=== PATIENT | male | born 1990 ===

== ENCOUNTER 2017-05-03 09:17 | Emergency (ER) | payer BC ==
[2017-05-03 09:20] VITALS: O2SAT 98
[2017-05-03 09:22] VITALS: BMI 29.0
[2017-05-03] MEDS ORDERED: Sodium Chloride 0.9% 1,000 ML IV STA (09:43)
[2017-05-03 10:13] LABS: BASO % 0.3 % (0.0-2.0); EOS # 0.1 K/uL (0.0-0.7); EOS % 1.4 % (0.0-4.0); HEMATOCRIT 43.8 % (35.0-51.0); LYMPH # 1.3 K/uL (1.0-4.3); LYMPH % 19.6 % (20.0-40.0); MEAN CELL VOLUME 86.7 fl (80.0-94.0); MEAN CORPUSCULAR HEMOGLOBIN 29.3 pg (27.0-31.0); MEAN CORPUSCULAR HGB CONC 33.8 g/dL (33.0-37.0); MEAN PLATELET VOLUME 8.1 fl (7.2-11.7); MONO # 0.5 K/uL (0.0-0.8); MONO % 7.8 % (0.0-10.0); NEUT # 4.8 K/uL (1.8-7.0); NEUT % 70.9 % (50.0-75.0); WHITE BLOOD COUNT 6.8 K/uL (4.8-10.8)
[2017-05-03 10:28] LABS: RBC URINE 2 /hpf (0-3); URINE BILIRUBIN NEGATIVE (NEGATIVE); URINE BLOOD NEGATIVE (NEGATIVE); URINE COLOR STRAW (YELLOW); URINE GLUCOSE (UA) NEG (Normal); URINE KETONE NEGATIVE (NEGATIVE); URINE LEUKOCYTE ESTERASE NEG Leu/uL (Negative); URINE PROTEIN NEGATIVE (NEGATIVE); URINE UROBILINOGEN 0.2-1.0 mg/dL (0.2-1.0); WBC URINE < 1 /hpf (0-5)
[2017-05-03 10:29] LABS: ALB/GLOB RATIO 1.4 (1.0-2.1); ALCOHOL SERUM < 10 mg/dl (0-10); ALKALINE PHOSPHATASE 82 U/L (38-126); ALT/SGPT 43 U/L (21-72); AST/SGOT 91 U/L (17-59); BILIRUBIN,TOTAL 0.7 mg/dl (0.2-1.3); BLOOD UREA NITROGEN 8 mg/dl (9-20); CALCIUM 9.7 mg/dL (8.4-10.2); CARBON DIOXIDE 26 mmol/L (22-30); CHLORIDE 105 mmol/L (98-107); GFR AFRICAN-AMERICAN > 60; GLUCOSE,RANDOM 103 mg/dL (75-110); POTASSIUM 3.9 MMOL/L (3.6-5.0); SODIUM 142 mmol/l (132-148); TOTAL PROTEIN 7.5 G/DL (6.3-8.2)
--- NOTE | 2017-05-03 12:30 | ED PDOC ---
Lower Extremity Pain/Injury Time Seen by Provider: 05/03/17 09:31 Chief Complaint (Nursing): Lower Extremity Problem/Injury History Per: Patient (states that he is concerned about his legs being restless. Symptoms have been present for 2-3 weeks. They seem to improve when he stands and walk but worsens when he is lying and trying to sleep. Patient has psych illness. He takes benzodiazepines, cogentin and other drugs.) History/Exam Limitations: no limitations Past Medical History Reviewed: Historical Data, Nursing Documentation, Vital Signs Vital Signs: Last Vital Signs Temp 99.1 F 05/03/17 09:19 Pulse 110 H 05/03/17 09:19 Resp 20 05/03/17 09:19 BP 186/95 H 05/03/17 09:19 Pulse Ox 98 05/03/17 09:26 - Medical History PMH: Anxiety (and OCD), Depression - Surgical History Surgical History: No Surg Hx - Family History Family History: States: Unknown Family Hx - Immunization History Hx Tetanus Toxoid Vaccination: Yes (2012) - Allergies Allergies/Adverse Reactions: Allergies Allergy/AdvReac Type Severity Reaction Status Date / Time No Known Allergies Allergy Verified 05/03/17 09:25 Review of Systems ROS Statement: Except As Marked, All Systems Reviewed And Found Negative Constitutional: Negative for: Fever, Chills Musculoskeletal: Positive for: Leg Pain (restless; cramps sometimes) Psych: Positive for: Anxiety, Depression. Negative for: Suicidal ideation Physical Exam - Reviewed Nursing Documentation Reviewed: Yes Vital Signs Reviewed: Yes - Physical Exam Appears: Positive for: Well, Non-toxic, No Acute Distress Head Exam: Positive for: ATRAUMATIC, NORMAL INSPECTION, NORMOCEPHALIC Skin: Positive for: Normal Color, Warm, DRY Eye Exam: Positive for: Normal appearance ENT: Positive for: Normal ENT Inspection Neck: Positive for: Normal, Painless ROM Cardiovascular/Chest: Positive for: Regular Rate, Rhythm Respiratory: Positive for: CNT, Normal Breath Sounds Gastrointestinal/Abdominal: Positive for: Normal Exam, Bowel Sounds, Soft Back: Positive for: Normal Inspection Extremity: Positive for: Normal ROM Neurologic/Psych: Positive for: Alert, Oriented - Laboratory Results Result Diagrams: 05/03/17 10:00 05/03/17 10:00 - ECG O2 Sat by Pulse Oximetry: 98 Disposition - Clinical Impression Clinical Impression: Leg pain - Patient ED Disposition Is Patient to be Admitted: No Doctor Will See Patient In The: Office Counseled Patient/Family Regarding: Diagnosis, Need For Followup - Disposition Referrals: [facility] [Outside] [facility] [Outside] [facility] [Outside] Disposition: Routine/Home Disposition Time: 12:31 Condition: STABLE Instructions: Leg Pain (ED), Anxiety (ED), Depression (ED) Forms: [employer] ([place]riac) - POA Present On Arrival: None
[2017-05-03 13:05] VITALS: BP 144/78; PULSE 90; RESP 16; TEMP 98
== END 2017-05-03 13:38 | disposition home or self-care (01) ==
LOC: H.ER 09:17
DX: M79.604 Pain in right leg (principal); M79.605 Pain in left leg; F41.9 Anxiety disorder, unspecified
CPT/HCPCS: 80053; 81003; 82550; 85025; 96374; 99283; G0480; J1885; J7040

== ENCOUNTER 2017-12-29 20:05 | Emergency (ER) | payer MEDICAID ==
[2017-12-29 20:05] VITALS: BMI 29.0
[2017-12-29 20:21] VITALS: BP 154/82; PULSE 75; RESP 18; TEMP 98.4; O2SAT 98
--- NOTE | 2017-12-29 20:58 | ED PDOC ---
HPI: Psych/Substance Abuse Time Seen by Provider: 12/29/17 20:22 Chief Complaint (Nursing): Psychiatric Evaluation Chief Complaint (Provider): Psychiatric Evaluation History Per: Patient History/Exam Limitations: no limitations Onset/Duration Of Symptoms: Days (x5) Current Symptoms Are (Timing): Still Present Associated Symptoms: Suicidal Thoughts. denies: Suicidal Plan Additional Complaint(s): Radha Hill is a 27 year old male with a past medical history of OCD, ADHD, and bipolar disorder, who is presenting to the ED with complaints of suicidal ideation and racing thoughts, onset 5 days ago. Patient states that he has had thoughts of self-injury but denies any plan. He reports that he takes [place], Zoloft, and hydroxyzine and is in compliance with his medications. Patient states that he saw his psychiatrist Dr. Antunez recently, who put him on hydroxyzine with minor relief of symptoms. Patient offers no other medical complaints at this time and denies homicidal ideation or any hallucinations. PMD: [place] Past Medical History Reviewed: Historical Data, Nursing Documentation, Vital Signs Vital Signs: Last Vital Signs Temp 98.4 F 12/29/17 20:18 Pulse 75 12/29/17 20:18 Resp 18 12/29/17 20:18 BP 154/82 H 12/29/17 20:18 Pulse Ox 98 12/29/17 20:18 - Medical History PMH: Anxiety (and OCD), Bipolar Disorder, Depression Other PMH: OCD, ADHD - Surgical History Surgical History: No Surg Hx - Family History Family History: States: Unknown Family Hx - Social History Current smoker - smoking cessation education provided: No Alcohol: None Drugs: Denies - Immunization History Hx Tetanus Toxoid Vaccination: Yes (2012) - Home Medications Home Medications: Ambulatory Orders Medication Instructions Recorded Hydroxyzine Pamoate [Vistaril] 25 mg PO BID 12/29/17 [place] Carbonate [[place] 600 mg PO BID 12/29/17 Carbonate] Minocycline HCl [Minocin] 100 mg PO BID 12/29/17 Sertraline [Zoloft] 200 mg PO DAILY 12/29/17 - Allergies Allergies/Adverse Reactions: Allergies Allergy/AdvReac Type Severity Reaction Status Date / Time No Known Allergies Allergy Verified 12/29/17 21:04 Review of Systems ROS Statement: Except As Marked, All Systems Reviewed And Found Negative Psych: Positive for: Suicidal ideation (racing thoughts). Negative for: Other ( homicidal ideation, hallucinations) Physical Exam - Reviewed Nursing Documentation Reviewed: Yes Vital Signs Reviewed: Yes - Physical Exam Appears: Positive for: Well, Non-toxic, No Acute Distress Head Exam: Positive for: ATRAUMATIC, NORMAL INSPECTION, NORMOCEPHALIC Skin: Positive for: Normal Color, Warm, DRY Eye Exam: Positive for: EOMI, Normal appearance, PERRL ENT: Positive for: Normal ENT Inspection Neck: Positive for: Normal, Painless ROM, Supple Cardiovascular/Chest: Positive for: Regular Rate, Rhythm. Negative for: Murmur Respiratory: Positive for: Normal Breath Sounds. Negative for: Respiratory Distress Gastrointestinal/Abdominal: Positive for: Normal Exam, Soft. Negative for: Tenderness Back: Positive for: Normal Inspection Extremity: Positive for: Normal ROM. Negative for: Deformity, Swelling Neurologic/Psych: Positive for: Alert, Oriented. Negative for: Motor/Sensory Deficits - ECG O2 Sat by Pulse Oximetry: 98 (RA) Pulse Ox Interpretation: Normal Medical Decision Making Medical Decision Making: Time: 20:23 Impression: 27 year old male with suicidal thoughts in setting of known bipolar disorder Plan: --Drug Screen --Crisis Evaluation --1:1 Observation Patient has a crisis evaluation and was cleared and stable for discharge. Patient will follow up with his therapist and Dr. Antunez. Scribe Attestation: Documented by, Michelle Stuart acting as a scribe for Jerome Mercer MD. Provider Scribe Attestation: All medical record entries made by the Scribe were at my direction and personally dictated by me. I have reviewed the chart and agree that the record accurately reflects my personal performance of the history, physical exam, medical decision making, and the department course for this patient. I have also personally directed, reviewed, and agree with the discharge instructions and disposition. Disposition - Clinical Impression Clinical Impression: Anxiety - Patient ED Disposition Is Patient to be Admitted: No - Disposition Disposition: Routine/Home Disposition Time: 22:42 Condition: STABLE Instructions: Anxiety, Adult (DC) Forms: [employer] (Trinidadian)
[2017-12-29 21:07] LABS: BENZODIAZEPINES, UR NEGATIVE (NEGATIVE)
[2017-12-29 21:08] LABS: BARBITURATES, UR NEGATIVE (NEGATIVE); OPIATES, UR NEGATIVE (NEGATIVE); PHENCYCLIDINE, UR NEGATIVE (NEGATIVE)
== END 2017-12-29 22:59 | disposition home or self-care (01) ==
LOC: H.ER 20:05
DX: F41.9 Anxiety disorder, unspecified (principal); F31.9 Bipolar disorder, unspecified; F42.9 Obsessive-compulsive disorder, unspecified; F90.9 Attention-deficit hyperactivity disorder, unspecified type

== ENCOUNTER 2018-04-29 07:07 | Emergency (ER) | payer MEDICAID ==
[2018-04-29 07:15] VITALS: BMI 21.7
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
[2018-04-29 08:02] LABS: BASO # 0.1 K/uL (0.0-0.2); BASO % 0.5 % (0.0-2.0); EOS # 0.1 K/uL (0.0-0.7); EOS % 1.2 % (0.0-4.0); HEMOGLOBIN 16.5 g/dL (12.0-18.0); LYMPH # 2.7 K/uL (1.0-4.3); LYMPH % 24.9 % (20.0-40.0); MEAN CELL VOLUME 86.3 fl (80.0-94.0); MEAN CORPUSCULAR HEMOGLOBIN 29.4 pg (27.0-31.0); MEAN PLATELET VOLUME 8.5 fl (7.2-11.7); MONO # 0.9 K/uL (0.0-0.8); MONO % 8.3 % (0.0-10.0); NEUT % 65.1 % (50.0-75.0); NRBC % 0.1 % (0.0-0.0); RBC 5.61 Mil/uL (4.40-5.90); RED CELL DISTRIBUTION WIDTH 12.8 % (11.5-14.5); WHITE BLOOD COUNT 10.8 K/uL (4.8-10.8)
[2018-04-29 08:16] LABS: ALB/GLOB RATIO 1.4 (1.0-2.1); ALBUMIN 4.7 g/dL (3.5-5.0); ALT/SGPT 29 U/L (21-72); AST/SGOT 59 U/L (17-59); BLOOD UREA NITROGEN 16 mg/dl (9-20); CALCIUM 10.2 mg/dL (8.4-10.2); GFR NON-AFRICAN AMERICAN > 60
[2018-04-29] MEDS: Potassium Chloride 20 mEq ER Tab PO ONE (09:00)
--- NOTE | 2018-04-29 09:22 | CARD ---
APPROVED REPORT Date of service: 04/29/2018 EKG Measurement Heart [id number] <Conclusion> Normal sinus rhythm prolonged QT abnormal ECG
[2018-04-29 10:59] LABS: BENZODIAZEPINES, UR NEGATIVE (NEGATIVE)
[2018-04-29 11:06] LABS: BARBITURATES, UR NEGATIVE (NEGATIVE); OPIATES, UR NEGATIVE (NEGATIVE); PHENCYCLIDINE, UR NEGATIVE (NEGATIVE)
--- NOTE | 2018-04-29 11:17 | RAD ---
Date of service: 04/29/2018 HISTORY: cough COMPARISON: No prior. FINDINGS: LUNGS: No active pulmonary disease. PLEURA: No significant pleural effusion identified, no pneumothorax apparent. CARDIOVASCULAR: Normal. OSSEOUS STRUCTURES: No significant abnormalities. VISUALIZED UPPER ABDOMEN: Normal. OTHER FINDINGS: None. IMPRESSION: No acute cardiopulmonary disease appreciated.
--- NOTE | 2018-04-29 19:29 | ED PDOC ---
- Laboratory Results Result Diagrams: 04/29/18 07:55 04/29/18 07:55 - ECG O2 Sat by Pulse Oximetry: 99 (RA) Pulse Ox Interpretation: Normal Medical Decision Making Medical Decision Making: Time: 1899 --Patient signed out to this provider by Dr. Mcfarland, pending [facility] screener evaluation. Time: 20:52 --Patient accepted by [facility], pending bed and voluntary admission. Time: 7:00 --Patient will be signed out to Dr. Tolliver pending [facility] bed availbility. Scribe Attestation: Documented by Tamika Kuhn, acting as a scribe for Jerome Mercer MD Provider Scribe Attestation: All medical record entries made by the Scribe were at my direction and personally dictated by me. I have reviewed the chart and agree that the record accurately reflects my personal performance of the history, physical exam, medical decision making, and the department course for this patient. I have also personally directed, reviewed, and agree with the discharge instructions and disposition. Disposition - Clinical Impression Clinical Impression: Bipolar 1 disorder - POA Present On Arrival: None - Disposition Disposition: Transfer of Care Disposition Time: 07:00 Condition: FAIR Forms: [employer] (Albanian) Patient Signed Over To: Kim Tolliver
--- NOTE | 2018-04-29 19:42 | ED PDOC ---
- Laboratory Results Result Diagrams: 04/29/18 07:55 04/29/18 07:55 - ECG O2 Sat by Pulse Oximetry: 100 (RA) Pulse Ox Interpretation: Normal Medical Decision Making Medical Decision Making: Time: 1700 --Signed out by Dr. Whitmore, waiting [facility] evaluation. No changes in status at this point, nothing pending medically Time: 1900 --Patient signed out to Dr. Mercer by this provider, pending [facility] evaluation. Scribe Attestation: Documented by Tamika Kuhn, acting as a scribe for Beckie Mcfarland MD Provider Scribe Attestation: All medical record entries made by the Scribe were at my direction and personally dictated by me. I have reviewed the chart and agree that the record accurately reflects my personal performance of the history, physical exam, medical decision making, and the department course for this patient. I have also personally directed, reviewed, and agree with the discharge instructions and disposition. Disposition - Clinical Impression Clinical Impression: Bipolar 1 disorder - POA Present On Arrival: None - Disposition Disposition: Transfer of Care Disposition Time: 19:00 Condition: FAIR Forms: [employer] ([place])
[2018-04-30] MEDS ORDERED: Potassium Chloride 20 mEq ER Tab PO ONE (01:44)
[2018-04-30] MEDS: Potassium Chloride 20 mEq ER Tab PO ONE (01:47)
--- NOTE | 2018-04-30 07:11 | ED PDOC ---
- Laboratory Results Result Diagrams: 04/29/18 07:55 04/30/18 07:02 - ECG O2 Sat by Pulse Oximetry: 99 (RA) Medical Decision Making Medical Decision Making: received patient from Dr. Mercer. Patient is pending [facility] evaluation. Also pending a repeat potassium level after replacement. - accepted by DR. Pandey at [facility]. Disposition Doctor Will See Patient In The: Hospital - Clinical Impression Clinical Impression: Bipolar 1 disorder - POA Present On Arrival: None - Disposition Disposition: Other Institution Disposition Time: 11:15 Condition: STABLE Instructions: Bipolar Disorder Forms: [employer] [facility] (Ukrainian)
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
[2018-04-30 13:35] VITALS: BP 123/72; PULSE 114; RESP 14; TEMP 98.1; O2SAT 97
== END 2018-04-30 13:34 | disposition short-term general hospital (02) ==
LOC: H.ER 07:07
DX: F31.9 Bipolar disorder, unspecified (principal); F41.9 Anxiety disorder, unspecified; F42.9 Obsessive-compulsive disorder, unspecified; F90.9 Attention-deficit hyperactivity disorder, unspecified type
CPT/HCPCS: 71045; 80053; 80320; 80324; 80345; 80346; 80349; 80353; 80358; 80361; 83992; 84132; 85025; 93005; 96372; 99285; J1630; J2060

== ENCOUNTER 2018-05-09 09:27 | Inpatient (IN) | payer MEDICAID ==
[2018-05-09 09:28] VITALS: BMI 21.7
[2018-05-09 09:40] VITALS: O2SAT 98
--- NOTE | 2018-05-09 10:23 | ED PDOC ---
HPI: Psych/Substance Abuse Time Seen by Provider: 05/09/18 09:43 Chief Complaint (Nursing): Anxiety Chief Complaint (Provider): Anxiety History Per: Patient, EMS History/Exam Limitations: no limitations Additional Complaint(s): 28 years old male with history of bipolar manic behavior brought over from [facility] for manic behavior. Patient has not been compliant with medication and denies SI/HI. PMD: non provided Past Medical History Reviewed: Historical Data, Nursing Documentation, Vital Signs Vital Signs: Last Vital Signs Temp 99.5 F 05/09/18 09:40 Pulse 90 05/09/18 09:40 Resp 20 05/09/18 09:40 BP 169/91 H 05/09/18 09:40 Pulse Ox 98 05/09/18 09:42 - Medical History PMH: Anxiety (and OCD), Bipolar Disorder, Depression Denies: Diabetes, Hepatitis, HIV, HTN, Seizures, Sexually Transmitted Disease - Surgical History Surgical History: No Surg Hx - Family History Family History: States: Unknown Family Hx - Immunization History Hx Tetanus Toxoid Vaccination: Yes (2012) Hx Influenza Vaccination: No Hx Pneumococcal Vaccination: No - Home Medications Home Medications: Ambulatory Orders Medication Instructions Recorded ARIPiprazole [Abilify] 15 mg PO DAILY 05/09/18 [place] Carbonate [[place] 300 mg PO DAILY 05/09/18 Carbonate 300MG] [place] Carbonate [[place] 600 mg PO HS 05/09/18 Carbonate 300MG] Propranolol [Inderal] 10 mg PO TID 05/09/18 hydrOXYzine Pamoate [Vistaril] 50 mg PO TID PRN 05/09/18 hydrOXYzine Pamoate [Vistaril] 100 mg PO HS 05/09/18 - Allergies Allergies/Adverse Reactions: Allergies Allergy/AdvReac Type Severity Reaction Status Date / Time No Known Allergies Allergy Verified 12/29/17 21:04 Review of Systems ROS Statement: Except As Marked, All Systems Reviewed And Found Negative Neurological: Positive for: Other (Manic behavior) Physical Exam - Reviewed Nursing Documentation Reviewed: Yes Vital Signs Reviewed: Yes - Physical Exam Appears: Positive for: Non-toxic, No Acute Distress Head Exam: Positive for: ATRAUMATIC, NORMOCEPHALIC Skin: Positive for: Normal Color, Warm, Dry Eye Exam: Positive for: Normal appearance, EOMI, PERRL Neck: Positive for: Normal, Painless ROM, Supple Cardiovascular/Chest: Positive for: Regular Rate, Rhythm. Negative for: Murmur Respiratory: Positive for: Normal Breath Sounds. Negative for: Respiratory Distress Gastrointestinal/Abdominal: Positive for: Normal Exam, Soft. Negative for: Tenderness Extremity: Positive for: Normal ROM. Negative for: Pedal Edema, Swelling Neurologic/Psych: Positive for: Alert, Oriented (x3) - Laboratory Results Result Diagrams: 05/09/18 11:00 05/09/18 11:00 - ECG O2 Sat by Pulse Oximetry: 98 (RA) Pulse Ox Interpretation: Normal Medical Decision Making Medical Decision Making: Time: 1008 Initial Plan: --Alcohol serum --CMP --Drug Screen --Urine Dipstick --CBC --1:1 Observation Medically stable for psychiatric admission ----- Scribe Attestation: Documented by Laura Hernandez, acting as a scribe for David Whitmore MD. Provider Scribe Attestation: All medical record entries made by the Scribe were at my direction and personally dictated by me. I have reviewed the chart and agree that the record accurately reflects my personal performance of the history, physical exam, medical decision making, and the department course for this patient. I have also personally directed, reviewed, and agree with the discharge instructions and disposition. Disposition - Clinical Impression Clinical Impression: Bipolar 1 disorder - Patient ED Disposition Is Patient to be Admitted: Yes - Disposition Disposition Time: 10:53 Condition: FAIR - Pt Status Changed To: Hospital Disposition Of: Inpatient - Admit Certification Admit to Inpatient:: After my assessment, the patient will require hospitalization for at least two midnights. This is because of the severity of symptoms shown, intensity of services needed, and/or the medical risk in this patient being treated as an outpatient. - POA Present On Arrival: None
[2018-05-09 11:12] LABS: BASO # 0.1 K/uL (0.0-0.2); BASO % 1.3 % (0.0-2.0); EOS % 0.4 % (0.0-4.0); HEMOGLOBIN 15.6 g/dL (12.0-18.0); MEAN CELL VOLUME 84.6 fl (80.0-94.0); MEAN CORPUSCULAR HEMOGLOBIN 29.3 pg (27.0-31.0); MEAN CORPUSCULAR HGB CONC 34.7 g/dL (33.0-37.0); MEAN PLATELET VOLUME 7.9 fl (7.2-11.7); MONO # 0.7 K/uL (0.0-0.8); MONO % 7.7 % (0.0-10.0); NEUT # 6.7 K/uL (1.8-7.0); NEUT % 69.6 % (50.0-75.0); RBC 5.3 Mil/uL (4.40-5.90); RED CELL DISTRIBUTION WIDTH 12.7 % (11.5-14.5); WHITE BLOOD COUNT 9.6 K/uL (4.8-10.8)
[2018-05-09 11:29] LABS: ALB/GLOB RATIO 1.3 (1.0-2.1); ALBUMIN 4.5 g/dL (3.5-5.0); ALT/SGPT 34 U/L (21-72); AST/SGOT 44 U/L (17-59); BLOOD UREA NITROGEN 13 mg/dl (9-20); CALCIUM 9.8 mg/dL (8.4-10.2); GFR NON-AFRICAN AMERICAN > 60
[2018-05-09 11:40] LABS: BARBITURATES, UR NEGATIVE (NEGATIVE); BENZODIAZEPINES, UR NEGATIVE (NEGATIVE); OPIATES, UR NEGATIVE (NEGATIVE); PHENCYCLIDINE, UR NEGATIVE (NEGATIVE)
--- NOTE | 2018-05-09 12:22 | RAD ---
Date of service: 05/09/2018 HISTORY: cough COMPARISON: 04/29/2018. FINDINGS: LUNGS: No active pulmonary disease. PLEURA: No significant pleural effusion identified, no pneumothorax apparent. CARDIOVASCULAR: Normal. OSSEOUS STRUCTURES: No significant abnormalities. VISUALIZED UPPER ABDOMEN: Normal. OTHER FINDINGS: None. IMPRESSION: No active disease. No significant interval change compared to the prior examination(s).
[2018-05-09] MEDS ORDERED: DiphenhydrAMINE 50 mg/ml Inj IM PRN (13:10)
[2018-05-09] MEDS ORDERED: Alum-Mag Hydrox-Simethicone Susp (30 mL) PO PRN (13:10)
[2018-05-09] MEDS ORDERED: Magnesium Hydroxide Susp 30 ml UD PO PRN (13:10)
--- NOTE | 2018-05-09 14:24 | PCM.BM ---
<Mauricio Alexander Aaron - Last Filed: 05/09/18 14:22> Treatment Plan Problems - Problems identified on initial assessmt Hopelessness/Helplessness Date Initiated: 05/09/18 Time Initiated: 14:00 Assessment reference: NA Altered Sleep Paterns Date Initiated: 05/09/18 Time Initiated: 14:00 Assessment reference: NA Medications Nonadherance Date Initiated: 05/09/18 Time Initiated: 14:00 Assessment reference: NA Treatment assets and liabiliti Patient Assests: adapts well, cooperative, insightful, self-reliant, ADL independent Patient Liabilities: poor support system, substance abuse - Milieu Protocol Maintain good personal hygiene: every shift Encourage regular showers, every shift Remind patient to perform daily oral care, every shift Assist patient to perform ADL's Maintain personal safety: every shift Educate patient to report safety concerns to staff, every shift Monitor environment for contraband/sharps Medication safety: Monitor for expected outcome, potential side effects: every shift, Assess barriers to learning: every shift, Assess readiness for medication education: every shift <Kiley Alford - Last Filed: 05/15/18 14:05> Treatment assets and liabiliti Patient Assests: adapts well, cooperative, insightful, motivated, self-reliant, ADL independent, physically healthy, good support system, negotiates basic needs, cognitively intact Patient Liabilities: poor support system, substance abuse Family Contact Family involvement: Family/SO is involved Family contact: Patient agrees to contact, Family has been contacted by patient, Telephone contact initiated by staff Family contact comment: NOTE from 05/13. [employer] Supervisor placed call to patients mother this morning to discuss progress on 3NP since admission an current presentation. [employer] Supervisor provided clinical updates regarding pts progress and assured mother that grant writer would continue to provide updates through-out patients stabilization. NOTE from 05/14. [employer] Supervisor placed call to patients mother this morning to discuss progress on 3NP since admission an current presentation. [employer] Supervisor received call from patients mother requesting clinical updates. [employer] Supervisor provided clinical updates regarding pts progress and notified patients mother that patient was screened by [facility] and not accepted. Patients mother made aware that patient signed a 48 hour notice earlier today but was rescinded and is agreeable to continue stabilization on 3NP through medication management and group/supportive therapy. Patients mother expressed concerns regarding pts adherence with medication prior to admission. [employer] Supervisor assured pts mother that importance of adherence with medications/aftercare and abstinence from substances is being emphasized daily. [employer] Supervisor to continue to provide updates through-out patients stabilization. [employer] Supervisor received call from patients mother at 4:40pm requesting clinical updates. [employer] Supervisor notified patients mother that secondary to threatening behaviors on 3NP, refusal of recommended tx and demands to be discharged, patient is currently awaiting [facility] screening. pts mother expressed understanding but disappointment in possibility of patient being committed to involuntary tx again. Pts mother inquired whether she is able to visit tonight. [employer] Supervisor recommended that patients mother to contact nurses station closer to visitation hours and inquire whether visitors are appropriate given pts presentation/behavior at the time. Pts mother expressed understanding. - Outside Agency Agency 1 Care involvment: Information-sharing, Other Agency contact name: [facility] Agency contact number: [phone] - Goals for Treatment Patient goals for treatment: Patient to continue stabilization on 3NP through medication management and group/supportive therapy to address sxs of [place] (restlessness, racing/illogical thoughts, sleep disturbances). Patient to be encouraged to attend groups regularly to promote self-awareness, sobriety,reality testing and improve insight, compliance, coping skills and self-esteem. Patient to be provided with referral for appropriate level of aftercare to reduce risk of future hospitalizations and ensure safety in the community. Discharge/Continuing Care - Education Needs Education Needs: Family Medication, Family Diagnosis/Disease Process, Family Coping Skills, Family Anger Management skills, Family Placement options, Family Community resources, Family Aftercare Safety Plan, Patient Medication, Patient Diagnosis/Disease Process, Patient Coping Skills, Patient Anger Management skills, Patient Placement options, Patient Community resources, Patient Aftercare Safety Plan - Discharge Discharge Criteria: Tolerates medication w/o severe side effects, Free of Suicidal thoughts, Free of paranoid thoughts, Free of agitation, Normal sleep pattern, Ability to care for self, Reduction of target symptoms Discharge to:: Home, With Family, Other ([facility]) - Treatment Team Participation Patient/Family/SO Statement: 05/15/18 14:19 LATE NOTE: TX TEAM NOTE FOR 05/12 Pt. AOX4 with constricted affect and fair eye contact. Pt. remains disorganized and tangential. Thought process is often illogical. Speech: pressured. Pt somewhat disheveled with fair ADLs. Insight/Coping skills/judgment impaired. Pt. denies SI/HI and is able to contract for safety on 3NP. Pt. continues to deny AH/VH but does appear internally preoccupied. Pt. reports ongoing sleep disturbances and restlessness. Pt. signed a 48 hour notice on 05/12 but rescinded on 05/13. Shortly after, pt. made a verbal 48 hour notice, expressing paranoia towards staff and demanding to be discharged. Pt. became irritable and threatening towards staff, requiring redirection and limit setting to remain in behavioral control. Pt. currently refusing medications. Pt. awaiting [facility] screening. Pt. was later screened and not accepted. Pt. submitted a 48 hour notice soon after. Patient rescinded and is agreeable to continuing stabilization on 3NP through medication management and group supportive therapy. Pt. continues to present with sxs of madison (restlessness, anxiety, racing thoughts, pressured speech) but to a lesser degree than upon admission. Pt. cooperative and in good behavioral control. Pt. visible on 3NP and observed socializing appropriately with peers. Discussed with Family/SO: Yes Was Patient/Family/SO present at Treatment Team Meeting: Yes <Guy Smith - Last Filed: 05/19/18 15:06> - Diagnosis (1) [place] Status: Acute Interventions: pharmacotherapy, psychotherapy 05/14/18 23:06
[2018-05-09] MEDS: Risperidone M tab 1 MG PO SCH (15:09)
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
--- NOTE | 2018-05-09 19:07 | CARD ---
APPROVED REPORT Date of service: 05/09/2018 <Conclusion> Normal sinus rhythm Normal ECG
[2018-05-09] MEDS ORDERED: Risperidone M TAB 2 MG PO SCH (22:00)
[2018-05-10 08:52] LABS: T4 10.2 ug/dl (5.5-11.0)
[2018-05-10] MEDS: Risperidone M tab 1 MG PO SCH (09:11)
--- NOTE | 2018-05-10 12:21 | PCM.PYCHPN ---
Psychiatric Progress Note - Psychiatric Progress Note Patient seen today, length of contact: Pt evaluated, case discussed w/ team, chart reviewed Patient Chief Complaint: [place]equ[place] Problems Identified/Issues Discussed: Patient continues to have rapid, pressured speech, w/ increased goal oriented activities, disorganized thought process and feelings of restlessness. He has not been agitated or aggressive and denies acute ideation to harm others. NO AH /VH/SI/HI. He discussed how he has conflicts with his father. We discussed continued titration of Risperdal and the importance of compliance with treatment and medications. No adverse effects reported. Medication Change: Yes (Increase Risperdal, starting tomorrow AM) Medical Record Reviewed: Yes Consults ordered or reviewed: Medicine consult Mental Status Examination - Cognitive Function Orientation: Person, Place, Situation, Time Memory: Intact Attention: Poor Concentration: Poor Association: Loose Fund of Knowledge: WNL Decription of patient's judgement and insights: Poor I/J - Mood Mood: Anxious - Affect Affect: Other (Labile) - Speech Speech: Pressured - Formal Thought Process Formal Thought Process: Paranoia, Loosening of associations, Flight of ideas, Circumstantial - Suicidal Ideation Suicidal Ideation: No - Homicidal Ideation Homicidal Ideation: No Goal/Treatment Plan - Goal/Treatment Plan Need for Continued Stay: Remain at risks for inpatient hospitalization, Discharge may exacerbated symptoms Progress Toward Problem(s) and Goals/Treatment Plan: Bipolar Disorder w/ Psychotic Features; Cannabis Use Disorder -Continue [place] -Increase Risperdal and Cogentin starting tomorrow AM -Individual and group therapy -Psychoeducation -Disposition planning Estimated Date of D/C: 05/16/18
--- NOTE | 2018-05-10 13:39 | CP.PCM.CON ---
History of Present Illness - History of Present Illness History of Present Illness: Reason for consult: per hospital protocol HPI: 28M PMH bipolar disorder and polysubstance abuse, noncomplaint with medications with prior psychiatric admissions since the age of 16 admitted for manic episode with psychotic features. Otherwise patient does not have any other complaints at this time. HD stable, NAD. ROS: per HPI all other systems reviewed and negative by me. Past Patient History - Past Social History Smoking Status: Never Smoked - CARDIAC Hx Cardiac Disorders: Yes Hx Hypertension: No - PULMONARY Hx Tuberculosis: No - NEUROLOGICAL HX Cerebrovascular Accident: No Hx Seizures: No - HEENT Hx Sinusitis: No - RENAL Hx Chronic Kidney Disease: No - ENDOCRINE/METABOLIC Hx Endocrine Disorders: No - HEMATOLOGICAL/ONCOLOGICAL Hx Cancer: No Hx Human Immunodeficiency Virus (HIV): No - INTEGUMENTARY Hx Dermatological Problems: No - MUSCULOSKELETAL/RHEUMATOLOGICAL Hx Musculoskeletal Disorders: No - GASTROINTESTINAL Hx Gastrointestinal Disorders: No - GENITOURINARY/GYNECOLOGICAL Hx Genitourinary Disorders: No Hx Sexually Transmitted Disorders: No - PSYCHIATRIC Hx Substance Use: Yes - SURGICAL HISTORY Hx Surgeries: No - ANESTHESIA Hx Anesthesia: No Meds Allergies/Adverse Reactions: Allergies Allergy/AdvReac Type Severity Reaction Status Date / Time No Known Allergies Allergy Verified 12/29/17 21:04 - Medications Medications: Current Medications Acetaminophen (Tylenol 325mg Tab) 650 mg PO Q4 PRN PRN Reason: Pain, moderate (4-7) Al Hydrox/Mg Hydrox/Simethicone (Maalox Plus 30 Ml) 30 ml PO Q4 PRN PRN Reason: Dyspepsia Benztropine Mesylate (Cogentin) 0.5 mg PO Q12 SHAUNNA Diphenhydramine HCl (Benadryl) 50 mg IM Q6 PRN PRN Reason: Extrapyramidal S/S Unable PO Diphenhydramine HCl (Benadryl) 50 mg PO Q6 PRN PRN Reason: Extrapyramidal Symptoms Last Admin: 05/09/18 22:20 Dose: 50 mg Haloperidol (Haldol) 5 mg PO Q6 PRN PRN Reason: Agitation Haloperidol Lactate (Haldol) 5 mg IM Q6 PRN PRN Reason: Agitation, Unable to Take PO Hydroxyzine Pamoate (Vistaril) 50 mg PO Q8 PRN PRN Reason: Anxiety Last Admin: 05/09/18 19:08 Dose: 50 mg [place] Carbonate ([place] Carbonate 300mg) 300 mg PO DAILY [facility] Last Admin: 05/10/18 09:07 Dose: 300 mg [place] Carbonate ([place] Carbonate 300mg) 600 mg PO HS [facility] Last Admin: 05/09/18 21:17 Dose: 600 mg Lorazepam (Ativan) 2 mg IM Q6 PRN PRN Reason: Anxiety/Agitation,Unable PO Magnesium Hydroxide (Milk Of Magnesia) 30 ml PO HS PRN PRN Reason: Constipation Nicotine (Nicoderm Cq) 1 patch TD DAILY [facility] Last Admin: 05/10/18 09:07 Dose: 1 patch Risperidone (Risperdal M-Tab) 2 mg PO Q12 [facility] Trazodone HCl (Desyrel) 100 mg PO HS PRN PRN Reason: Insomnia Last Admin: 05/09/18 21:17 Dose: 100 mg Physical Exam - Constitutional Appears: Non-toxic, No Acute Distress - Head Exam Head Exam: ATRAUMATIC, NORMOCEPHALIC - Eye Exam Eye Exam: EOMI, Normal appearance, PERRL - ENT Exam ENT Exam: Mucous Membranes Moist, Normal Exam - Neck Exam Neck exam: Positive for: Full Rom, Normal Inspection - Respiratory Exam Respiratory Exam: Clear to Auscultation Bilateral, NORMAL BREATHING PATTERN - Cardiovascular Exam Cardiovascular Exam: REGULAR RHYTHM, RRR, +S1, +S2 - GI/Abdominal Exam GI & Abdominal Exam: Normal Bowel Sounds, Soft. absent: Tenderness - Extremities Exam Extremities exam: Positive for: normal capillary refill, normal inspection, pedal pulses present - Back Exam Back exam: absent: CVA tenderness (L), CVA tenderness (R) - Neurological Exam Neurological exam: Alert, Reflexes Normal - Psychiatric Exam Psychiatric exam: Normal Affect, Normal Mood - Skin Skin Exam: Dry, Normal Color Results - Vital Signs Recent Vital Signs: Last Vital Signs Temp 96.8 F L 05/10/18 09:37 Pulse 108 H 05/10/18 09:37 Resp 20 05/10/18 09:37 BP 147/95 H 05/10/18 09:37 Pulse Ox 98 05/09/18 12:01 - Labs Result Diagrams: 05/09/18 11:00 05/09/18 11:00 Labs: Laboratory Results - last 24 hr 05/10/18 06:30 Triglycerides 95 D Cholesterol 158 LDL Cholesterol Direct 102 HDL Cholesterol 41 Thyroxine (T4) 10.2 TSH 3rd Generation 2.10 Assessment & Plan - Assessment and Plan (Free Text) Plan: 28M PMH bipolar disorder and polysubstance abuse, noncomplaint with medications with prior psychiatric admissions since the age of 16 admitted for manic episode with psychotic features. Otherwise patient does not have any other complaints at this time. HD stable, NAD. Bipolar disorder, manic with psychotic features management per psych team
[2018-05-10] MEDS: Risperidone M TAB 2 MG PO SCH (21:43)
[2018-05-11] MEDS: Risperidone M TAB 2 MG PO SCH (09:02)
--- NOTE | 2018-05-11 10:16 | PCM.PYCHPN ---
Psychiatric Progress Note - Psychiatric Progress Note Patient seen today, length of contact: Pt evaluated, case discussed w/ team, chart reviewed Patient Chief Complaint: Tequila Problems Identified/Issues Discussed: Patient continues to have rapid, pressured speech, w/ feelings of restlessness, but he is more organized on conversation. He has not been agitated or aggressive and denies acute ideation to harm others. NO AH/VH/SI/HI. He is not willing to continue taking Risperdal because "it makes me psychotic," but he was agreeable to taking Seroquel which he states was effective in the past. No adverse effects reported. Medication Change: Yes (Stop Risperdal, Start Seroquel) Medical Record Reviewed: Yes Consults ordered or reviewed: Medicine consult Mental Status Examination - Cognitive Function Orientation: Person, Place, Situation, Time Memory: Intact Attention: Poor Concentration: Poor Association: Loose Fund of Knowledge: WNL Decription of patient's judgement and insights: Poor I/J - Mood Mood: Anxious - Affect Affect: Other (Labile) - Speech Speech: Pressured - Formal Thought Process Formal Thought Process: Paranoia, Loosening of associations, Flight of ideas, Circumstantial Psychotic Thoughts and Behaviors: +Paranoia - Suicidal Ideation Suicidal Ideation: No - Homicidal Ideation Homicidal Ideation: No Goal/Treatment Plan - Goal/Treatment Plan Need for Continued Stay: Remain at risks for inpatient hospitalization, Discharge may exacerbated symptoms Progress Toward Problem(s) and Goals/Treatment Plan: Bipolar Disorder w/ Psychotic Features; Cannabis Use Disorder -Continue [place] -Stop Risperdal, Start Seroquel -Individual and group therapy -Psychoeducation -Disposition planning Estimated Date of D/C: 05/16/18
[2018-05-12] MEDS ORDERED: Risperidone M TAB 2 MG PO STA (12:24)
--- NOTE | 2018-05-12 15:19 | PCM.PYCHPN ---
Psychiatric Progress Note - Psychiatric Progress Note Patient seen today, length of contact: Pt evaluated, case discussed w/ team, chart reviewed Patient Chief Complaint: I feel that the medicine makes me psychotic Problems Identified/Issues Discussed: pt evaluated with treatment team, presenting with tangential thought process, pt believes that the medicine makes him psychotic rather than using cannabis discussed with pt the need to be started on medications that could be given as injection to help with compliance , pt denied previous side effects of risperidone agreed to be restarted on it with the goal to be shifted to risperidone consta pt continues to be pacing hyperactive with episodes of irritability, discussed starting pt on neurontin 200mg tid, and trazodone 200mg qhs for sleep encouraged pt to participate in groups, pt given one dose of risperidone 2mg with cogentin, no reported side effects pt denied command hallucinations, denied suicidal or homicidal ideation Medical Problems: pt has multiple inpatient hospitalizations since age 16 pt has hx of non compliance with medication or follow up Medication Change: Yes (start risperidone ) Medical Record Reviewed: Yes Mental Status Examination - Cognitive Function Orientation: Person, Place, Situation, Time Memory: Intact Attention: Poor Concentration: Poor Association: Loose Fund of Knowledge: WNL - Mood Mood: Anxious - Affect Affect: Other (Labile) - Speech Speech: Pressured - Formal Thought Process Formal Thought Process: Paranoia, Loosening of associations, Flight of ideas, Circumstantial - Suicidal Ideation Suicidal Ideation: No - Homicidal Ideation Homicidal Ideation: No Goal/Treatment Plan - Goal/Treatment Plan Need for Continued Stay: Remain at risks for inpatient hospitalization, Discharge may exacerbated symptoms Progress Toward Problem(s) and Goals/Treatment Plan: lithium 300mg daily and 600mg qhs/ follow up on lithium level start risperidone 2mg qhs with plan to change to risperidone consta to ensure compliance encourage compliance CBT motivational and group therapy Estimated Date of D/C: 05/16/18
[2018-05-12] MEDS: Risperidone M TAB 2 MG PO SCH (21:12)
[2018-05-13] MEDS ORDERED: Risperidone M TAB 2 MG PO ONE (11:30)
--- NOTE | 2018-05-13 11:37 | PCM.PYCHPN ---
Psychiatric Progress Note - Psychiatric Progress Note Patient seen today, length of contact: Pt evaluated, case discussed w/ team, chart reviewed Patient Chief Complaint: I need cannabis to sleep get me out of here Problems Identified/Issues Discussed: pt reported by staff to have poor night sleep, pacing and irritable all night , on evaluation, pt is manic irritable and loud,threatening, demanding to be discharged, presenting with disorganized though process , stating that the medications makes him manic and he needs weed to sleep, stating he did not notify staff about his court date yesterday because he would have to pay money for that, requesting to be transferred to [facility] but on voluntary status , paranoid towards staff believing they are conspiring against him and requesting a floor broker, refusing medications, hypervigilant, domineering and not responding to redirection with loose association pt denied command hallucinations, denied suicidal or homicidal ideation Medical Problems: pt has multiple inpatient hospitalizations since age 16 pt has hx of non compliance with medication or follow up DSM 5 Symptoms Update: bipolar I disorder MRE manic severe with psychotic features cannabis abuse alcohol abuse Medication Change: Yes (increase risperidone) Medical Record Reviewed: Yes Mental Status Examination - Cognitive Function Orientation: Person, Place, Situation, Time Memory: Intact Attention: Poor Concentration: Poor Association: Loose Fund of Knowledge: WNL - Mood Mood: Anxious Additional comments: angry - Affect Affect: Other (Labile) - Speech Speech: Loud, Pressured Additional comments: angry, irritable , threatening - Formal Thought Process Formal Thought Process: Paranoia, Loosening of associations, Flight of ideas, Circumstantial - Suicidal Ideation Suicidal Ideation: No - Homicidal Ideation Homicidal Ideation: No Goal/Treatment Plan - Goal/Treatment Plan Need for Continued Stay: Remain at risks for inpatient hospitalization, Discharge may exacerbated symptoms Progress Toward Problem(s) and Goals/Treatment Plan: pt at current mental status , manic, irritable, threatening, floridly psychotic and disorganized, refusing medications, signed 48 hour notice requesting to be discharged, at current mental status danger to self and others will be referred to be screened for involuntary admission safety of self and others and continuity of treatment continue lithium 300mg daily and 600mg qhs/ follow up on lithium level increase risperidone 2mg bid with plan to change to risperidone consta to ensure compliance encourage compliance CBT motivational and group therapy Estimated Date of D/C: 05/16/18
[2018-05-13] MEDS: Risperidone M TAB 2 MG PO SCH (21:24)
[2018-05-14] MEDS: Risperidone M TAB 2 MG PO SCH ×2 (08:41→21:05)
[2018-05-14] MEDS ORDERED: risperiDONE Consta 25mg/2ml Syringe IM ONE (12:00)
--- NOTE | 2018-05-14 18:57 | PCM.PYCHPN ---
Psychiatric Progress Note - Psychiatric Progress Note Patient seen today, length of contact: Pt evaluated, case discussed w/ team, chart reviewed Patient Chief Complaint: I am manic and I need help Problems Identified/Issues Discussed: pt evaluated with team, reported having a better sleep last night , pt continues to have a tangential thought process, reported continues to have mood swings, feeling hyperactive and manic at times , discussed with pt increasing do se of lithium. also discussed, starting risperidone consta to ensure compliance, medication compliance encouraged ,pt continues to need a lot of encouragement to continue with treatment pt denied command hallucinations, denied suicidal or homicidal ideation Medical Problems: pt has multiple inpatient hospitalizations since age 16 pt has hx of non compliance with medication or follow up Medication Change: Yes (increase lithium) Medical Record Reviewed: Yes Mental Status Examination - Cognitive Function Orientation: Person, Place, Situation, Time Memory: Intact Attention: WNL Concentration: WNL Association: WN Fund of Knowledge: [facility] Decription of patient's judgement and insights: partial insight , poor judgement - Mood Mood: Anxious - Affect Affect: Other (Labile) - Speech Speech: Loud, Pressured - Formal Thought Process Formal Thought Process: Paranoia, Loosening of associations, Circumstantial - Suicidal Ideation Suicidal Ideation: No - Homicidal Ideation Homicidal Ideation: No Goal/Treatment Plan - Goal/Treatment Plan Need for Continued Stay: Remain at risks for inpatient hospitalization, Discharge may exacerbated symptoms Progress Toward Problem(s) and Goals/Treatment Plan: increase lithium 450mg daily daily and 600mg qhs/ follow up on lithium level i risperidone 2mg bid , cogentin 1mg bid , start risperidone consta 1st dose 25mg IM 05/14/18 to ensure compliance encourage compliance CBT motivational and group therapy Estimated Date of D/C: 05/19/18
[2018-05-15] MEDS: Risperidone M TAB 2 MG PO SCH ×2 (09:00→21:01)
[2018-05-15] MEDS: Lithium Carbonate 150 MG CAP PO SCH (09:00)
[2018-05-16] MEDS: Lithium Carbonate 150 MG CAP PO SCH (08:43)
[2018-05-16] MEDS: Risperidone M TAB 2 MG PO SCH ×2 (09:31→21:04)
--- NOTE | 2018-05-16 19:16 | PCM.PYCHPN ---
Psychiatric Progress Note - Psychiatric Progress Note Patient seen today, length of contact: Pt evaluated, case discussed w/ team, chart reviewed Patient Chief Complaint: came to hospital felt like father put him here because he wanted to travel, pt reports anxious at times, staff report pt is redirectable, has been seen walking about unit. rx adherent Problems Identified/Issues Discussed: alteration in mood alteration in coping Medical Problems: per chart Diagnostic Results: per psychiatry per medicine per nursing per social work per recreational therapy DSM 5 Symptoms Update: alteration in mood coping cognition Medication Change: No Medical Record Reviewed: Yes Consults ordered or reviewed: pt seen by hospitalist Mental Status Examination - Cognitive Function Orientation: Person, Place, Situation, Time Memory: Intact Attention: WNL Concentration: WNL Association: [facility] Fund of Knowledge: [facility] Decription of patient's judgement and insights: impaired - Mood Mood: Anxious - Affect Affect: Other (Labile) - Speech Speech: Loud, Pressured - Formal Thought Process Formal Thought Process: Paranoia, Loosening of associations, Circumstantial - Suicidal Ideation Suicidal Ideation: No - Homicidal Ideation Homicidal Ideation: No Goal/Treatment Plan - Goal/Treatment Plan Need for Continued Stay: Remain at risks for inpatient hospitalization, Discharge may exacerbated symptoms Progress Toward Problem(s) and Goals/Treatment Plan: inpt milieu adjust meds per status-recently had lithium increased due repeat level [id number] am vital signs and clinical assessment per protocol and per status discharge planning in progress Estimated Date of D/C: 05/19/18 - Smoking Cessation Smoking Cessation Initiated: Yes
--- NOTE | 2018-05-17 08:58 | PCM.PYCHPN ---
Psychiatric Progress Note - Psychiatric Progress Note Patient seen today, length of contact: Pt evaluated, case discussed w/ team, chart reviewed Patient Chief Complaint: pt still is very irritible with racing thoughts and very anxiius and restless .no side effects to meds.tolerating lithium and risperdal well. Medication Change: No Medical Record Reviewed: Yes Mental Status Examination - Cognitive Function Orientation: Person, Place, Situation, Time Memory: Intact Attention: WNL Concentration: WNL Association: WNL Fund of Knowledge: WNL - Mood Mood: Anxious - Affect Affect: Other (Labile) - Speech Speech: Loud, Pressured - Formal Thought Process Formal Thought Process: Paranoia, Loosening of associations, Circumstantial - Suicidal Ideation Suicidal Ideation: No - Homicidal Ideation Homicidal Ideation: No Goal/Treatment Plan - Goal/Treatment Plan Need for Continued Stay: Remain at risks for inpatient hospitalization, Discharge may exacerbated symptoms Progress Toward Problem(s) and Goals/Treatment Plan: will continue to titrate meds to stabilize the pt with titration of all the meds and check the lithium level in am Estimated Date of D/C: 05/19/18
[2018-05-17] MEDS: Lithium Carbonate 150 MG CAP PO SCH (09:16)
[2018-05-17] MEDS: Risperidone M TAB 2 MG PO SCH ×2 (09:18→21:07)
[2018-05-18] MEDS: Lithium Carbonate 150 MG CAP PO SCH (08:54)
[2018-05-18] MEDS: Risperidone M TAB 2 MG PO SCH ×2 (08:54→21:18)
[2018-05-19] MEDS: Risperidone M TAB 2 MG PO SCH ×2 (09:37→21:11)
--- NOTE | 2018-05-19 15:48 | PN ---
DATE: 05/18/2018 PSYCHIATRIC FOLLOWUP PROGRESS NOTE SUBJECTIVE: The patient has been seen today. The chart reviewed and the case discussed with the treatment team members. The patient has a significant history of bipolar disorder and has been admitted because of increasingly manic behavior with agitation, noncompliant with the medication and possibly also abuse of substances. The patient has been stabilized on the current regimen of medications including Risperdal and lithium. The patient report some improvement in the symptoms of madison with decrease of the raising thoughts and also decrease in the psychotic symptoms. Denies any side effects of medications. Denies any suicidal ideation plan or intent. The lithium level has been repeated and is 0.3, which is normal limit. The patient denies any side effects to lithium and has been tolerating it very well. Insight and judgement is still limited. Needs further improvement with further titration of medication. DIAGNOSTIC IMPRESSION: Bipolar disorder type 1, most recent episode madison, severe with psychotic features. PLAN OF TREATMENT: We will continue the current regimen of Risperdal and provide lithium and further titrate the medications and needed to stabilize the patient and continue to engage the patient on therapy and groups for management. When the patient is stabilized on the medication, the treatment team will initiate the disposition planning, and the patient will be referred for higher level of care for possibly a partial hospital care of treatment. We will follow up care with medication and therapy as well as for substance abuse as well. Aric Morales MD
--- NOTE | 2018-05-19 16:00 | PCM.PYCHPN ---
Psychiatric Progress Note - Psychiatric Progress Note Patient seen today, length of contact: Pt evaluated, case discussed w/ team, chart reviewed Patient Chief Complaint: I still feel anxious Problems Identified/Issues Discussed: pt evaluated with team, reported continues to feel anxious and hypomanic, discussed with pt that lithium level is 0.6, will increase the dose to 600mg bid and follow up on the level, CBT provided discussing healthy coping skills to deat with anxiety also the effect of long cannabis use on current mental status pt denied side effects of medications, denied any current perceptual disturbances or thoughts of self harm Medical Problems: pt has multiple inpatient hospitalizations since age 16 pt has hx of non compliance with medication or follow up DSM 5 Symptoms Update: bipolar I disorder manic severe with psychotic features cannabis abuse Medication Change: Yes (increase lithium) Medical Record Reviewed: Yes Mental Status Examination - Cognitive Function Orientation: Person, Place, Situation, Time Memory: Intact Attention: WNL Concentration: WNL Association: WNL Fund of Knowledge: WN - Mood Mood: Anxious - Affect Affect: Other (Labile) - Speech Speech: Loud, Pressured - Formal Thought Process Formal Thought Process: Paranoia, Loosening of associations, Circumstantial - Suicidal Ideation Suicidal Ideation: No - Homicidal Ideation Homicidal Ideation: No Goal/Treatment Plan - Goal/Treatment Plan Need for Continued Stay: Remain at risks for inpatient hospitalization, Discharge may exacerbated symptoms Progress Toward Problem(s) and Goals/Treatment Plan: increase lithium 600mg daily daily and 600mg qhs/ follow up on lithium level risperidone 2mg bid , cogentin 1mg bid , risperidone consta 1st dose 25mg IM 05/14/18 to ensure compliance encourage compliance CBT motivational and group therapy Estimated Date of D/C: 05/19/18
[2018-05-19 16:15] VITALS: RESP 20
[2018-05-20] MEDS: Risperidone M TAB 2 MG PO SCH ×2 (08:36→21:01)
--- NOTE | 2018-05-20 17:37 | PCM.PYCHPN ---
Psychiatric Progress Note - Psychiatric Progress Note Patient seen today, length of contact: Pt evaluated, case discussed w/ team, chart reviewed Patient Chief Complaint: I feel better with the increase in lithium Problems Identified/Issues Discussed: pt evaluated , reported feeling calmer and less manic with increase in lithium, continues to have episodes of anxiety, attending groups and compliant with treatment pt denied side effects of medications, denied any current perceptual disturbances or thoughts of self harm Medical Problems: pt has multiple inpatient hospitalizations since age 16 pt has hx of non compliance with medication or follow up DSM 5 Symptoms Update: bipolar I disorder manic severe with psychotic features Medication Change: No (increase lithium) Medical Record Reviewed: Yes Mental Status Examination - Cognitive Function Orientation: Person, Place, Situation, Time Memory: Intact Attention: WNL Concentration: WNL Association: WNL Fund of Knowledge: WNL - Mood Mood: Anxious - Affect Affect: Other (Labile) - Speech Speech: Loud, Pressured - Formal Thought Process Formal Thought Process: Paranoia, Loosening of associations, Circumstantial - Suicidal Ideation Suicidal Ideation: No - Homicidal Ideation Homicidal Ideation: No Goal/Treatment Plan - Goal/Treatment Plan Need for Continued Stay: Remain at risks for inpatient hospitalization, Discharge may exacerbated symptoms Progress Toward Problem(s) and Goals/Treatment Plan: increase lithium 600mg daily daily and 600mg qhs/ follow up on lithium level risperidone 2mg bid , cogentin 1mg bid , risperidone consta 1st dose 25mg IM 05/14/18 to ensure compliance encourage compliance CBT motivational and group therapy Estimated Date of D/C: 05/21/18
[2018-05-21] MEDS: Risperidone M TAB 2 MG PO SCH (08:28)
[2018-05-21 09:23] VITALS: BP 142/68; PULSE 92; TEMP 96.6
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
== END 2018-05-21 13:48 | disposition home or self-care (01) | DRG 430 ==
LOC: H.ER 09:27 → H.ERHOLD 10:52 → H.PSYCH 12:19
PROVIDERS: ADMIT Psychiatry & Neurology Psychiatry; ATTEND Psychiatry & Neurology Psychiatry
PROC: GZHZZZZ Group Psychotherapy (ICD-10-PCS; principal; 2018-05-09)
PROC: HZ52ZZZ Individual Psychotherapy for Substance Abuse Treatment, Cognitive-Behavioral (ICD-10-PCS; 2018-05-09)
PROC: HZ57ZZZ Individual Psychotherapy for Substance Abuse Treatment, Motivational Enhancement (ICD-10-PCS; 2018-05-09)
DX: F31.2 Bipolar disorder, current episode manic severe with psychotic features (principal); Z91.14 Patient's other noncompliance with medication regimen; F12.90 Cannabis use, unspecified, uncomplicated; F10.10 Alcohol abuse, uncomplicated

== ENCOUNTER 2018-12-29 11:25 | Inpatient (IN) | payer MEDICAID ==
[2018-12-29 11:50] VITALS: BMI 30.3
--- NOTE | 2018-12-29 13:03 | ED PDOC ---
HPI: Psych/Substance Abuse Time Seen by Provider: 12/29/18 12:22 Chief Complaint (Nursing): Psychiatric Evaluation Chief Complaint (Provider): i took seroquel ED Caveat: Acuity of Condition History Per: Patient History/Exam Limitations: no limitations Suicide/Self Injury Attempted (Context): Ingestion Modifying Factor(s): None Severity: Moderate Associated Symptoms: Anxiety, Depression, Suicidal Thoughts, Suicidal Plan Involuntary Hold By: Emergency Physician Additional Complaint(s): 28yo male arrives in ED with psychologist, hx depression/anxiety/bipolar after reporting to him he ingested 4 seroquel 100mg tabs in attempt to kill self. States one prior admission in 2018 after suicide attempt. Denies alcohol use, admits to THC use. Has had worsening "intrusive" thoughts of harming self over the last several weeks, precipitating last night in ingestion of 4 tabs seroquel. Denies taking lithium or gabapentin, his other daily medications. Past Medical History Reviewed: Historical Data, Nursing Documentation, Vital Signs Vital Signs: Last Vital Signs Temp 98.9 F 12/29/18 11:48 Pulse 81 12/29/18 11:48 Resp 16 12/29/18 11:48 BP 130/78 12/29/18 11:48 Pulse Ox 99 12/29/18 11:48 Primary Care Provider: Non [facility] Provider, - Medical History PMH: Anxiety (and OCD), Bipolar Disorder, Depression Denies: Diabetes, Hepatitis, HIV, HTN, Chronic Kidney Disease, Seizures, Sexually Transmitted Disease - Family History Family History: States: Unknown Family Hx - Immunization History Hx Tetanus Toxoid Vaccination: Yes (2012) Hx Influenza Vaccination: No Hx Pneumococcal Vaccination: No - Home Medications Home Medications: Ambulatory Orders Medication Instructions Recorded Nicotine 21 mg/24 hr [Nicoderm Cq] 1 patch TD DAILY 30 Days #30 patch 05/21/18 Gabapentin [Neurontin] 300 mg PO TID 12/29/18 [place] Carbonate [[place] 600 mg PO BID 12/29/18 Carbonate 300MG] QUEtiapine [SEROquel] 100 mg PO DAILY 12/29/18 - Allergies Allergies/Adverse Reactions: Allergies Allergy/AdvReac Type Severity Reaction Status Date / Time No Known Allergies Allergy Verified 12/29/17 21:04 Review of Systems Constitutional: Negative for: Fever ENT: Negative for: Nose Discharge Respiratory: Negative for: Shortness of Breath Gastrointestinal: Negative for: Abdominal Pain Genitourinary Male: Negative for: Dysuria Musculoskeletal: Negative for: Neck Pain Neurological: Negative for: Weakness, Numbness, Altered Mental Status, Headache, Dizziness Psych: Positive for: Anxiety, Depression, Suicidal ideation Physical Exam - Reviewed Nursing Documentation Reviewed: Yes Vital Signs Reviewed: Yes - Physical Exam Appears: Positive for: Well, Non-toxic, No Acute Distress Head Exam: Positive for: ATRAUMATIC, NORMAL INSPECTION, NORMOCEPHALIC Skin: Positive for: Normal Color, Warm, DRY Eye Exam: Positive for: EOMI, Normal appearance, PERRL ENT: Positive for: Normal ENT Inspection Neck: Positive for: Normal, Painless ROM Cardiovascular/Chest: Positive for: Regular Rate, Rhythm. Negative for: Tachycardia Respiratory: Positive for: CNT, Normal Breath Sounds Gastrointestinal/Abdominal: Positive for: Normal Exam, Soft Back: Positive for: Normal Inspection Extremity: Positive for: Normal ROM Neurological/Psych: Positive for: Awake, Alert, Normal Tone, Interactive/Playful, Oriented, Mood/Affect (flat fair insight cooperative) - Laboratory Results Result Diagrams: 12/29/18 15:37 12/30/18 14:47 - ECG O2 Sat by Pulse Oximetry: 99 Medical Decision Making Medical Decision Making: workup for acute ingestion initiated 1:1 check levels, EKG, basic labs, crisis eval labs unremarkable neg ASA/acetaminophen/lithium previous EKG 2018 QRS 102ms thus today in setting of ingestion different, slightly widened to 112ms RN d/w Poison control contacted rec Sodium bicarb and repeat EKG Repeat EKG 1508 QRS 120ms Additional Sodium bicarb ordered and K+ replacement earlier [facility] Disposition - Clinical Impression Clinical Impression: Overdose of antipsychotic, Acute electrocardiogram changes, Bipolar 1 disorder - Patient ED Disposition Is Patient to be Admitted: Yes - Disposition Disposition Time: 17:00 Condition: FAIR - Pt Status Changed To: Hospital Disposition Of: Inpatient - Admit Certification Admit to Inpatient:: After my assessment, the patient will require hospitalization for at least two midnights. This is because of the severity of symptoms shown, intensity of services needed, and/or the medical risk in this patient being treated as an outpatient.
[2018-12-29] MEDS ORDERED: Sodium Bicarbonate 7.5% (0.9 MEQ/ML) 50ML INJ IV ONE (14:04)
[2018-12-29] MEDS ORDERED: Sodium Bicarbonate (8.4%) 50 Meq Syringe ONE ×2 (14:29→19:55)
[2018-12-29] MEDS ORDERED: Sodium Bicarbonate (8.4%) 50 Meq Syringe IV ONE ×2 (14:45)
[2018-12-29 15:43] LABS: BASO % 0.4 % (0.0-2.0); EOS % 0.6 % (0.0-4.0); HEMOGLOBIN 15.8 g/dL (12.0-18.0); LYMPH # 1.7 K/uL (1.0-4.3); LYMPH % 25.7 % (20.0-40.0); MEAN CELL VOLUME 86.7 fl (80.0-94.0); MEAN CORPUSCULAR HGB CONC 33.5 g/dL (33.0-37.0); MEAN PLATELET VOLUME 9.1 fl (7.2-11.7); MONO # 0.3 K/uL (0.0-0.8); NEUT # 4.6 K/uL (1.8-7.0); NEUT % 69.3 % (50.0-75.0); NRBC % 0.1 % (0.0-0.0); RBC 5.45 Mil/uL (4.40-5.90); RED CELL DISTRIBUTION WIDTH 13.2 % (11.5-14.5); WHITE BLOOD COUNT 6.6 K/uL (4.8-10.8)
[2018-12-29 15:56] LABS: ALB/GLOB RATIO 1.5 (1.0-2.1); ALT/SGPT 39 U/L (21-72); AST/SGOT 31 U/L (17-59); BLOOD UREA NITROGEN 11 mg/dl (9-20); CALCIUM 9.9 mg/dL (8.4-10.2); GFR NON-AFRICAN AMERICAN > 60
[2018-12-29 15:57] LABS: ACETAMINOPHEN < 10.0 ug/ml (10.0-30.0); SALICYLATE < 1.0 mg/dl
--- NOTE | 2018-12-29 18:05 | CARD ---
APPROVED REPORT Date of service: 12/29/2018 EKG Measurement Heart [id number] <Conclusion> Normal sinus rhythm with sinus arrhythmia Normal ECG
--- NOTE | 2018-12-29 18:08 | CARD ---
APPROVED REPORT Date of service: 12/29/2018 EKG Measurement Heart [id number] [id number] <Conclusion> Normal sinus rhythm with sinus arrhythmia Normal ECG
[2018-12-29 18:21] LABS: BARBITURATES, UR NEGATIVE (NEGATIVE); BENZODIAZEPINES, UR NEGATIVE (NEGATIVE); OPIATES, UR NEGATIVE (NEGATIVE); PHENCYCLIDINE, UR NEGATIVE (NEGATIVE)
[2018-12-29] MEDS ORDERED: Potassium Chloride 20 mEq ER Tab PO ONE ×2 (18:35→19:02)
[2018-12-29] MEDS ORDERED: Sodium Bicarbonate (8.4%) 50 Meq Syringe IVP ONE (19:34)
--- NOTE | 2018-12-30 06:13 | CP.PCM.PCO ---
Physician Communication Note - Physician Communication Note Physician Communication Note: Pt with sinus bradycardia; recommend cardiology consult.
[2018-12-30] MEDS: Dextrose 5%/Lactated Ringer's 1,000 ML IV SCH (06:46)
[2018-12-30 07:01] VITALS: RESP 18
--- NOTE | 2018-12-30 08:32 | RAD ---
Date of service: 12/29/2018 HISTORY: OD COMPARISON: Frontal chest radiograph 05/09/2018. TECHNIQUE: 1 view obtained. FINDINGS: LUNGS: No active pulmonary disease. PLEURA: No significant pleural effusion identified, no pneumothorax apparent. CARDIOVASCULAR: No aortic atherosclerotic calcification present. Normal cardiac size. No pulmonary vascular congestion. OSSEOUS STRUCTURES: No significant abnormalities. VISUALIZED UPPER ABDOMEN: Normal. OTHER FINDINGS: None. IMPRESSION: No interval acute cardiopulmonary disease appreciated.
--- NOTE | 2018-12-30 10:08 | CARD ---
APPROVED REPORT Date of service: 12/30/2018 EKG Measurement Heart [id number] [id number] <Conclusion> Sinus bradycardia Otherwise normal ECG
--- NOTE | 2018-12-30 11:31 | CP.PCM.CON ---
History of Present Illness - History of Present Illness History of Present Illness: Psychiatry consult note CC: "I tried to commit suicide." HPI: 28 yo male w/ h/o bipolar disorder, presents s/p suicide attempt by atte mpting to take 4 (100 mg) Seroquel tablets. He reports worsening depression, anxiety, intrusive thoughts to commit suicide and sleep disturbances. He denies acute AH/VH/paranoia/delusions. A + O x 3. Patient agreeable to inpatient psychiatric admission. PPHx: >7 past psychiatric admission; admitted to [facility] in 04/2018; current tx w/ Dr. Rousseau; Current medications- Gustavus 600 mg PO BID, Neurontin 300 mg PO TID; Seroquel 100 mg PO HS PMHx: No chronic medical issues ALL: NKDA SHx: Lives w/ parents; unemployed; +Marijuana use every other day; ETOH use approx 2 times/month; denies current cig use FHx: Father w/ bipolar disorder Impression: 28 yo male w/ h/o bipolar disorder presents w/ self reported suicide attempt. -Recommend Cardiology consult and clearance prior to psychiatric admission and prior to restarting Gustavus -Continue 1:1 for safety -Patient will need inpatient psychiatric admission when he is medically clear Past Patient History - Infectious Disease Hx of Infectious Diseases: None - Past Medical History & Family History Past Medical History?: Yes - Past Social History Smoking Status: Current Some Days Smoker - CARDIAC Hx Cardiac Disorders: No Hx Hypertension: No - PULMONARY Hx Respiratory Disorders: No Hx Tuberculosis: No - NEUROLOGICAL Hx Neurological Disorder: No Hx Seizures: No - HEENT Hx HEENT Problems: No - RENAL Hx Chronic Kidney Disease: No - ENDOCRINE/METABOLIC Hx Endocrine Disorders: No - HEMATOLOGICAL/ONCOLOGICAL Hx Blood Disorders: No Hx Human Immunodeficiency Virus (HIV): No - INTEGUMENTARY Hx Dermatological Problems: No - MUSCULOSKELETAL/RHEUMATOLOGICAL Hx Musculoskeletal Disorders: No Hx Falls: No - GASTROINTESTINAL Hx Gastrointestinal Disorders: No - GENITOURINARY/GYNECOLOGICAL Hx Genitourinary Disorders: No Hx Sexually Transmitted Disorders: No - PSYCHIATRIC Hx Psychophysiologic Disorder: Yes Hx Anxiety: Yes (and OCD) Hx Bipolar Disorder: Yes Hx Depression: Yes Hx Substance Use: No - SURGICAL HISTORY Hx Surgeries: No - ANESTHESIA Hx Anesthesia: No Hx Anesthesia Reactions: No Hx Malignant Hyperthermia: No Has any member of the family had a problem w/ anesthesia?: No Meds Allergies/Adverse Reactions: Allergies Allergy/AdvReac Type Severity Reaction Status Date / Time No Known Allergies Allergy Verified 12/29/17 21:04 - Medications Medications: Current Medications Gabapentin (Neurontin) 300 mg PO TID SHAUNNA Dextrose/Lactated Ringer's (Dextrose 5%/Lactated Ringer's) 1,000 mls @ 100 mls/hr IV .Q10H SHAUNNA Stop: 12/31/18 06:38 Last Admin: 12/30/18 06:46 Dose: 100 mls/hr Results - Vital Signs Recent Vital Signs: Last Vital Signs Temp 98.0 F 12/30/18 08:09 Pulse 57 L 12/30/18 08:09 Resp 18 12/30/18 08:09 BP 111/63 12/30/18 08:09 Pulse Ox 98 12/30/18 08:09 - Labs Result Diagrams: 12/29/18 15:37 12/29/18 15:37 Labs: Laboratory Results - last 24 hr 12/29/18 12/29/18 12/29/18 15:37 15:37 15:37 WBC 6.6 RBC 5.45 Hgb 15.8 Hct 47.2 MCV 86.7 MCH 29.0 MCHC 33.5 RDW 13.2 Plt Count 240 MPV 9.1 Neut % (Auto) 69.3 Lymph % (Auto) 25.7 [place] % (Auto) 4.0 Eos % (Auto) 0.6 Baso % (Auto) 0.4 Neut # (Auto) 4.6 Lymph # (Auto) 1.7 [place] # (Auto) 0.3 Eos # (Auto) 0.0 Baso # (Auto) 0.0 Sodium 142 Potassium 3.4 L Chloride 102 Carbon Dioxide 25 Anion Gap 18 BUN 11 Creatinine 0.8 Est GFR ( Amer) > 60 Est GFR (Non-Af Amer) > 60 Random Glucose 69 L Calcium 9.9 Total Bilirubin 0.9 AST 31 ALT 39 Alkaline Phosphatase 111 Total Protein 8.3 H Albumin 5.0 Globulin 3.3 Albumin/Globulin Ratio 1.5 Salicylates < 1.0 Urine Opiates Screen Urine Methadone Screen Acetaminophen < 10.0 L Ur Barbiturates Screen Ur Phencyclidine Scrn Ur Amphetamines Screen U Benzodiazepines Scrn [place] < 0.2 L U Oth Cocaine Metabols U Cannabinoids Screen Alcohol, Quantitative < 10 12/29/18 17:22 WBC RBC Hgb Hct MCV MCH MCHC RDW Plt Count MPV Neut % (Auto) Lymph % (Auto) [place] % (Auto) Eos % (Auto) Baso % (Auto) Neut # (Auto) Lymph # (Auto) [place] # (Auto) Eos # (Auto) Baso # (Auto) Sodium Potassium Chloride Carbon Dioxide Anion Gap BUN Creatinine Est GFR ( Amer) Est GFR (Non-Af Amer) Random Glucose Calcium Total Bilirubin AST ALT Alkaline Phosphatase Total Protein Albumin Globulin Albumin/Globulin Ratio Salicylates Urine Opiates Screen Negative Urine Methadone Screen Negative Acetaminophen Ur Barbiturates Screen Negative Ur Phencyclidine Scrn Negative Ur Amphetamines Screen Negative U Benzodiazepines Scrn Negative Gustavus U Oth Cocaine Metabols Negative U Cannabinoids Screen Positive H Alcohol, Quantitative
[2018-12-30] MEDS: Pantoprazole 40 mg EC Tab PO SCH (13:05)
--- NOTE | 2018-12-30 13:32 | PQF ---
PROVIDER RESPONSE TEXT: Provider was unable to determine a response for this query. REVIEWER QUERY TEXT: Documentation Clarification Your help is requested in clarifying the following clinical documentation, if you can please further specify in the medical record and discharge summary. Documentation of a history of Bipolar Disorder. Please further specify : 1) Specific type of current episode: Depressed, Hypomanic, Manic or Mixed 2) Severity level: Mild, Moderate, Severe OR If in Remission: Partial, Full, Unspecified 3) Psychosis: With or without psychosis ---Other explanation ---Unable to determine The patient's Clinical Indicators include: ER MD: 28yo male arrives in ED with psychologist, hx depression/anxiety/bipolar after reporting to him he ingested 4 Seroquel 100mg tabs in attempt to kill self. Rx: Poison control rec Na Bicarbonate and repeat EKG, Psych consult, 1:1 Query created by: Kathy Rhodes on 12/30/2018 1:19 PM Electronically signed by: Gavi Thomas MD 12/30/2018 1:29 PM
[2018-12-30 15:03] LABS: BLOOD UREA NITROGEN 9 mg/dl (9-20); CALCIUM 9.2 mg/dL (8.4-10.2); GFR NON-AFRICAN AMERICAN > 60
[2018-12-31] MEDS: Dextrose 5%/Lactated Ringer's 1,000 ML IV SCH (03:29)
--- NOTE | 2018-12-31 09:10 | CP.PCM.CON ---
History of Present Illness - History of Present Illness History of Present Illness: This 28-year-old man was brought to the emergency room after he took four 100 mg tablets of Seroquel with an intention to kill himself. He has had a long history of psychiatric illness which includes bipol ar disorder and obsessive-compulsive disorder and depression. 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 In school he used to play sports but for the last 8 to 10 years has not been exercising regularly as part of his daily routine. He walks approximately a couple of miles in the course of an average day. There is no prior history of lightheadedness or dizziness. He does not take any beta-blockers. He does not use any glaucoma eyedrops. Physical examination shows a young man well-built well-nourished who is able to ambulate freely in the room and was found sitting up in a chair comfortably. Telemetry shows his heart rate for approximately 12 hours has been in physiological range with sinus rhythm. At the time of this examination his heart rate was 72 bpm and regular. His blood pressure was 140/80 mmHg. His jugular venous pressure was not elevated and there was no edema over his lower extremities. The pedal pulses were well felt. There were no carotid bruits. The apex was not palpable. The first and second heart sounds were normal. There was no murmur or gallop. There were no rales. His abdomen was soft. Liver and spleen are not palpable. His electrocardiogram at admission showed sinus rhythm with a normal EKG pattern. Electrocardiogram taken at 4:13 a.m. in the morning showed sinus rhythm at 46 bpm. The cardiogram except for the heart rate was normal. His labs were normal. Impression: Multiple psychiatric illnesses with recent attempt at suicide. No cardiovascular abnormality was detected. A single bradycardic event recorded at 4:13 AM with physiological heart rates during the rest of the day is normal. No further cardiac work-up or intervention is necessary. Past Patient History - Infectious Disease Hx of Infectious Diseases: None - Past Medical History & Family History Past Medical History?: Yes - Past Social History Smoking Status: Current Some Days Smoker - CARDIAC Hx Hypertension: No - PULMONARY Hx Respiratory Disorders: No Hx Tuberculosis: No - NEUROLOGICAL Hx Seizures: No - HEENT Hx HEENT Problems: No - RENAL Hx Chronic Kidney Disease: No - ENDOCRINE/METABOLIC Hx Endocrine Disorders: No - HEMATOLOGICAL/ONCOLOGICAL Hx Human Immunodeficiency Virus (HIV): No - INTEGUMENTARY Hx Dermatological Problems: No - MUSCULOSKELETAL/RHEUMATOLOGICAL Hx Musculoskeletal Disorders: No Hx Falls: No - GASTROINTESTINAL Hx Gastrointestinal Disorders: No - GENITOURINARY/GYNECOLOGICAL Hx Sexually Transmitted Disorders: No - PSYCHIATRIC Hx Anxiety: Yes (and OCD) Hx Bipolar Disorder: Yes Hx Depression: Yes - SURGICAL HISTORY Hx Surgeries: No - ANESTHESIA Hx Anesthesia: No Hx Anesthesia Reactions: No Hx Malignant Hyperthermia: No Has any member of the family had a problem w/ anesthesia?: No Meds Allergies/Adverse Reactions: Allergies Allergy/AdvReac Type Severity Reaction Status Date / Time No Known Allergies Allergy Verified 12/29/17 21:04 - Medications Medications: Current Medications Gabapentin (Neurontin) 300 mg PO TID [facility] Last Admin: 12/30/18 17:26 Dose: 300 mg Lorazepam (Ativan) 1 mg PO Q8 PRN PRN Reason: Anxiety Last Admin: 12/31/18 00:38 Dose: 1 mg Pantoprazole Sodium (Protonix Ec Tab) 40 mg PO DAILY [facility] Last Admin: 12/30/18 13:05 Dose: 40 mg Results - Vital Signs Recent Vital Signs: Last Vital Signs Temp 98.3 F 12/31/18 07:53 Pulse 73 12/31/18 07:53 Resp 18 12/31/18 07:53 BP 144/78 12/31/18 07:53 Pulse Ox 96 12/31/18 07:53 - Labs Result Diagrams: 12/29/18 15:37 12/30/18 14:47 Labs: Laboratory Results - last 24 hr 12/30/18 14:47 Sodium 140 Potassium 3.6 Chloride 104 Carbon Dioxide 25 Anion Gap 15 BUN 9 Creatinine 0.9 Est GFR ( Amer) > 60 Est GFR (Non-Af Amer) > 60 Random Glucose 114 H Calcium 9.2
[2018-12-31] MEDS: Pantoprazole 40 mg EC Tab PO SCH (09:23)
--- NOTE | 2018-12-31 11:15 | CP.PCM.PCO ---
Physician Communication Note - Physician Communication Note Physician Communication Note: pt. cleared for d/c to psych by , , notified
--- NOTE | 2018-12-31 11:20 | PQF ---
PROVIDER RESPONSE TEXT: Potassium supplemented, please add hypokalemia to final diagnosis. REVIEWER QUERY TEXT: Medication Correlation for Diagnosis Your help is needed in capturing diagnoses for the corresponding medications ordered. Please clarify in the documentation diagnoses for the following medication(s) Or other explanation . Medications: K-dur given in the ER. Potassium level: 3.4. The patient's Clinical Indicators include: ER IMP: Overdose of antipsychotic, Acute electrocardiogram changes ER MD note: previous EKG 2018 QRS 102ms thus today in setting of ingestion different, slightly widene d to 112ms RN d/w Poison control contacted rec Sodium bicarb and repeat EKG Repeat EKG 1508 QRS 120ms Additional Sodium bicarb ordered and K+ replacement earlier ordered K 3.4 Query created by: Kathy Rhodes on 12/31/2018 10:37 AM Electronically signed by: Leonides GARCIA 12/31/2018 11:18 AM
--- NOTE | 2018-12-31 12:47 | CP.PCM.DIS ---
Provider - Provider Date of Admission: 12/29/18 19:42 Attending physician: Valentino Yung MD Consults: 12/29/18 12:27 Crisis Evaluation As Ordered Comment: Physician Instructions: Reason For Exam: OD 12/30/18 06:38 Psychiatry Consult Routine Comment: Consulting Provider: Gavi Thomas Consulting Physician: Gavi Thomas Reason for Consult: overdose 12/30/18 09:47 Cardiology Consult Routine Comment: Consulting Provider: Juan Ramon Crowley V Consulting Physician: Juan Ramon Crowley V Reason for Consult: sinus bradycardia 40s Time Spent in preparation of Discharge (in minutes): 30 Diagnosis - Discharge Diagnosis (1) Acute electrocardiogram changes Status: Acute (2) Bipolar 1 disorder Status: Acute (3) Overdose of antipsychotic Status: Acute Hospital Course - Lab Results Lab Results: Most Recent Lab Values WBC 6.6 K/uL (4.8-10.8) 12/29/18 15:37 RBC 5.45 Mil/uL (4.40-5.90) 12/29/18 15:37 Hgb 15.8 g/dL (12.0-18.0) 12/29/18 15:37 Hct 47.2 % (35.0-51.0) 12/29/18 15:37 MCV 86.7 fl (80.0-94.0) 12/29/18 15:37 MCH 29.0 pg (27.0-31.0) 12/29/18 15:37 MCHC 33.5 g/dL (33.0-37.0) 12/29/18 15:37 RDW 13.2 % (11.5-14.5) 12/29/18 15:37 Plt Count 240 K/uL (130-400) 12/29/18 15:37 MPV 9.1 fl (7.2-11.7) 12/29/18 15:37 Neut % (Auto) 69.3 % (50.0-75.0) 12/29/18 15:37 Lymph % (Auto) 25.7 % (20.0-40.0) 12/29/18 15:37 [place] % (Auto) 4.0 % (0.0-10.0) 12/29/18 15:37 Eos % (Auto) 0.6 % (0.0-4.0) 12/29/18 15:37 Baso % (Auto) 0.4 % (0.0-2.0) 12/29/18 15:37 Neut # (Auto) 4.6 K/uL (1.8-7.0) 12/29/18 15:37 Lymph # (Auto) 1.7 K/uL (1.0-4.3) 12/29/18 15:37 [place] # (Auto) 0.3 K/uL (0.0-0.8) 12/29/18 15:37 Eos # (Auto) 0.0 K/uL (0.0-0.7) 12/29/18 15:37 Baso # (Auto) 0.0 K/uL (0.0-0.2) 12/29/18 15:37 Sodium 140 mmol/l (132-148) 12/30/18 14:47 Potassium 3.6 MMOL/L (3.6-5.0) 12/30/18 14:47 Chloride 104 mmol/L (98-107) 12/30/18 14:47 Carbon Dioxide 25 mmol/L (22-30) 12/30/18 14:47 Anion Gap 15 (10-20) 12/30/18 14:47 BUN 9 mg/dl (9-20) 12/30/18 14:47 Creatinine 0.9 mg/dl (0.8-1.5) 12/30/18 14:47 Est GFR ( Amer) > 60 12/30/18 14:47 Est GFR (Non-Af Amer) > 60 12/30/18 14:47 Random Glucose 114 mg/dL (75-110) H 12/30/18 14:47 Calcium 9.2 mg/dL (8.4-10.2) 12/30/18 14:47 Total Bilirubin 0.9 mg/dl (0.2-1.3) 12/29/18 15:37 AST 31 U/L (17-59) 12/29/18 15:37 ALT 39 U/L (21-72) 12/29/18 15:37 Alkaline Phosphatase 111 U/L (38-126) 12/29/18 15:37 Total Protein 8.3 G/DL (6.3-8.2) H 12/29/18 15:37 Albumin 5.0 g/dL (3.5-5.0) 12/29/18 15:37 Globulin 3.3 gm/dL (2.2-3.9) 12/29/18 15:37 Albumin/Globulin Ratio 1.5 (1.0-2.1) 12/29/18 15:37 Salicylates < 1.0 mg/dl 12/29/18 15:37 Urine Opiates Screen Negative (NEGATIVE) 12/29/18 17:22 Urine Methadone Screen Negative (NEGATIVE) 12/29/18 17:22 Acetaminophen < 10.0 ug/ml (10.0-30.0) L 12/29/18 15:37 Ur Barbiturates Screen Negative (NEGATIVE) 12/29/18 17:22 Ur Phencyclidine Scrn Negative (NEGATIVE) 12/29/18 17:22 Ur Amphetamines Screen Negative (NEGATIVE) 12/29/18 17:22 U Benzodiazepines Scrn Negative (NEGATIVE) 12/29/18 17:22 [place] < 0.2 MMOL/L (0.6-1.2) L 12/29/18 15:37 U Oth Cocaine Metabols Negative (NEGATIVE) 12/29/18 17:22 U Cannabinoids Screen Positive (NEGATIVE) H 12/29/18 17:22 Alcohol, Quantitative < 10 mg/dl (0-10) 12/29/18 15:37 - Hospital Course Hospital Course: 28yo male arrives in ED with psychologist, hx depression/anxiety/bipolar after reporting to him he ingested 4 seroquel 100mg tabs in attempt to kill self. Has had worsening "intrusive" thoughts of harming self over the last several weeks, precipitating last night in ingestion of 4 tabs seroquel. Noted abnormal EKG changes with QRS lengthening. Was admitted for further evaluation and management prior to psych admission. Cardiology was consulted. Cleared by cardiology. Patient was discharged to psych in stable condition. No complaints offered. Discharge Exam - Head Exam Head Exam: ATRAUMATIC, NORMAL INSPECTION, NORMOCEPHALIC - Eye Exam Eye Exam: Normal appearance - Respiratory Exam Respiratory Exam: NORMAL BREATHING PATTERN - Cardiovascular Exam Cardiovascular Exam: +S1, +S2 - GI/Abdominal Exam GI & Abdominal Exam: Unremarkable - Neurological Exam Neurological exam: Alert, Oriented x3 - Psychiatric Exam Psychiatric exam: Normal Affect, Normal Mood - Skin Skin Exam: Normal Color, Warm Discharge Plan - Follow Up Plan Condition: STABLE Disposition: DISCHARGE TO PSYCH HOSPITAL Instructions: Bipolar Disorder (DC) Referrals: Valentino Yung MD [Medical Doctor] -
[2018-12-31 16:12] VITALS: BP 147/78; PULSE 74; TEMP 98.6; O2SAT 99
--- NOTE | 2019-01-02 07:42 | CP.PCM.HP ---
History of Present Illness - History of Present Illness History of Present Illness: This is a 28 y/o male with hx of psychiatric disorder obsssive compulsive, bipolar disorder admitted after a suicidal intent of taking 4 tabs of seroquel 100 mg. He was kept in telemetry and noted to have 1 episode of bradycardia overnight. He lives alone and has been unemployed. he has multiple hospitalizations in the past more than 7x to [facility]. Present on Admission - Present on Admission Any Indicators Present on Admission: No History of DVT/PE: No History of Uncontrolled Diabetes: No Urinary Catheter: No Decubitus Ulcer Present: No Past Patient History - Infectious Disease Hx of Infectious Diseases: None - Past Medical History & Family History Past Medical History?: Yes - Past Social History Smoking Status: Current Some Days Smoker - CARDIAC Hx Hypertension: No - PULMONARY Hx Respiratory Disorders: No Hx Tuberculosis: No - NEUROLOGICAL Hx Seizures: No - HEENT Hx HEENT Problems: No - RENAL Hx Chronic Kidney Disease: No - ENDOCRINE/METABOLIC Hx Endocrine Disorders: No - HEMATOLOGICAL/ONCOLOGICAL Hx Human Immunodeficiency Virus (HIV): No - INTEGUMENTARY Hx Dermatological Problems: No - MUSCULOSKELETAL/RHEUMATOLOGICAL Hx Musculoskeletal Disorders: No Hx Falls: No - GASTROINTESTINAL Hx Gastrointestinal Disorders: No - GENITOURINARY/GYNECOLOGICAL Hx Sexually Transmitted Disorders: No - PSYCHIATRIC Hx Anxiety: Yes (and OCD) Hx Bipolar Disorder: Yes Hx Depression: Yes - SURGICAL HISTORY Hx Surgeries: No - ANESTHESIA Hx Anesthesia: No Hx Anesthesia Reactions: No Hx Malignant Hyperthermia: No Has any member of the family had a problem w/ anesthesia?: No Meds Home Medications: Home Medication List Medication Instructions Recorded Confirmed Type LORazepam [Ativan] 1 mg PO Q8 PRN tab 12/31/18 Rx Pantoprazole [Protonix EC Tab] 40 mg PO DAILY ect 12/31/18 Rx Allergies/Adverse Reactions: Allergies Allergy/AdvReac Type Severity Reaction Status Date / Time No Known Allergies Allergy Verified 12/29/17 21:04 Physical Exam - Head Exam Head Exam: NORMAL INSPECTION - Eye Exam Eye Exam: Normal appearance - ENT Exam ENT Exam: Mucous Membranes Moist - Respiratory Exam Respiratory Exam: Clear to Auscultation Bilateral - Cardiovascular Exam Cardiovascular Exam: REGULAR RHYTHM - Neurological Exam Neurological exam: Alert, Oriented x3 Results - Vital Signs Recent Vital Signs: Last Vital Signs Temp 98.6 F 12/31/18 16:11 Pulse 74 12/31/18 16:11 Resp 18 12/31/18 16:11 BP 147/78 12/31/18 16:11 Pulse Ox 99 12/31/18 16:11 - Labs Result Diagrams: 12/29/18 15:37 12/30/18 14:47 Assessment & Plan (1) Drug overdose Status: Acute (2) Suicide attempt Status: Acute (3) Bipolar 1 disorder, depressed Status: Acute - Assessment and Plan (Free Text) Plan: telemtery follow up cardiology Psych eval hydrate one to one observation
== END 2018-12-31 16:10 | DRG 449 ==
LOC: H.ER 11:25 → H.ERHOLD 19:42 → H.TEL 23:12
PROVIDERS: ADMIT Family Medicine; ATTEND Family Medicine
DX: T43.592A Poisoning by other antipsychotics and neuroleptics, intentional self-harm, initial encounter (principal); E87.6 Hypokalemia; F31.9 Bipolar disorder, unspecified; Z91.5 Personal history of self-harm; F42.9 Obsessive-compulsive disorder, unspecified; F41.9 Anxiety disorder, unspecified; Z81.8 Family history of other mental and behavioral disorders; Z87.891 Personal history of nicotine dependence

== ENCOUNTER 2018-12-31 14:39 | Inpatient (IN) | payer MEDICAID ==
[2018-12-31] MEDS ORDERED: Magnesium Hydroxide Susp 30 ml UD PO PRN ×2 (17:35→17:59)
[2018-12-31] MEDS ORDERED: Alum-Mag Hydrox-Simethicone Susp (30 mL) PO PRN ×2 (17:35→17:59)
[2018-12-31] MEDS ORDERED: DiphenhydrAMINE 50 mg/ml Inj IM PRN ×2 (17:35→17:59)
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
[2019-01-01] MEDS: Pantoprazole 40 mg EC Tab PO SCH (08:51)
[2019-01-01 09:57] LABS: LDL CHOLESTEROL 107 mg/dL (0-129)
[2019-01-01 10:15] LABS: ALB/GLOB RATIO 1.5 (1.0-2.1); ALBUMIN 4.4 g/dL (3.5-5.0); ALT/SGPT 36 U/L (21-72); AST/SGOT 23 U/L (17-59); BLOOD UREA NITROGEN 12 mg/dl (9-20); CALCIUM 9.3 mg/dL (8.4-10.2); GFR NON-AFRICAN AMERICAN > 60; HDL CHOLESTEROL 42 MG/DL (30-70)
--- NOTE | 2019-01-01 10:36 | CP.PCM.CON ---
History of Present Illness - History of Present Illness History of Present Illness: 28yo male w/ hx depression/anxiety/bipolar presented to ED after ingesting 4 seroquel 100mg tabs in attempt to kill self. Has had worsening "intrusive" thoughts of harming self over the last several weeks, precipitating to ingestion of 4 tabs seroquel. Patient was noted to have abnormal EKG changes with QRS lengthening. Was admitted to telemetry for further evaluation and management prior to psych admission. Cardiology was consulted. Cleared by cardiology. Patient was discharged to psych in stable condition. Patient now in Psych floor. No complaints offered. Denies chest pain, sob, palpitations, headaches. Meds: as per chart Allergies: as per chart Fam hx: non-contributory Review of Systems - Review of Systems All systems: reviewed and no additional remarkable complaints except (mentioned above) Past Patient History - Infectious Disease Hx of Infectious Diseases: None - Past Medical History & Family History Past Medical History?: Yes Past Family History: Reviewed and not pertinent - Past Social History Smoking Status: Current Some Days Smoker - CARDIAC Hx Hypertension: No - PULMONARY Hx Respiratory Disorders: No Hx Tuberculosis: No - NEUROLOGICAL Hx Neurological Disorder: No Hx Seizures: No - HEENT Hx HEENT Problems: No - RENAL Hx Chronic Kidney Disease: No - ENDOCRINE/METABOLIC Hx Endocrine Disorders: No - HEMATOLOGICAL/ONCOLOGICAL Hx Blood Disorders: No Hx Human Immunodeficiency Virus (HIV): No - INTEGUMENTARY Hx Dermatological Problems: No - MUSCULOSKELETAL/RHEUMATOLOGICAL Hx Musculoskeletal Disorders: No Hx Falls: No - GASTROINTESTINAL Hx Gastrointestinal Disorders: No - GENITOURINARY/GYNECOLOGICAL Hx Genitourinary Disorders: No Hx Sexually Transmitted Disorders: No - PSYCHIATRIC Hx Depression: Yes Hx Physical Abuse: No Hx Sexual Abuse: No Hx Substance Use: Yes (smokes pot frequently) - SURGICAL HISTORY Hx Surgeries: No - ANESTHESIA Hx Anesthesia: No Hx Anesthesia Reactions: No Hx Malignant Hyperthermia: No Meds Allergies/Adverse Reactions: Allergies Allergy/AdvReac Type Severity Reaction Status Date / Time No Known Allergies Allergy Verified 12/29/17 21:04 - Medications Medications: Current Medications Acetaminophen (Tylenol 325mg Tab) 650 mg PO Q4 PRN PRN Reason: Pain (4-7) Al Hydrox/Mg Hydrox/Simethicone (Maalox Plus 30 Ml) 30 ml PO Q4 PRN PRN Reason: Dyspepsia Diphenhydramine HCl (Benadryl) 50 mg IM Q6 PRN PRN Reason: Extrapyramidal S/S Unable PO Diphenhydramine HCl (Benadryl) 50 mg PO Q6 PRN PRN Reason: EPS/Dystonic Reaction Diphenhydramine HCl (Benadryl) 50 mg PO HS PRN PRN Reason: Sleep Last Admin: 12/31/18 21:12 Dose: 50 mg Gabapentin (Neurontin) 300 mg PO TID [facility] Last Admin: 01/01/19 08:51 Dose: 300 mg Haloperidol (Haldol) 5 mg PO Q4 PRN PRN Reason: Agitation Haloperidol Lactate (Haldol) 5 mg IM Q4 PRN PRN Reason: Agitation, Unable to Take PO Lorazepam (Ativan) 2 mg IM Q4 PRN PRN Reason: Anxiety/Agitation,Unable PO Lorazepam (Ativan) 1 mg PO Q8 PRN PRN Reason: Anxiety Magnesium Hydroxide (Milk Of Magnesia) 30 ml PO HS PRN PRN Reason: Constipation Pantoprazole Sodium (Protonix Ec Tab) 40 mg PO DAILY [facility] Last Admin: 01/01/19 08:51 Dose: 40 mg Physical Exam - Constitutional Appears: Non-toxic, No Acute Distress - Head Exam Head Exam: NORMAL INSPECTION - Eye Exam Eye Exam: Normal appearance - Respiratory Exam Respiratory Exam: NORMAL BREATHING PATTERN - Cardiovascular Exam Cardiovascular Exam: +S1, +S2 - Neurological Exam Neurological exam: Alert, Oriented x3 - Psychiatric Exam Psychiatric exam: Normal Affect, Normal Mood - Skin Skin Exam: Normal Color, Warm Results - Vital Signs Recent Vital Signs: Last Vital Signs Temp 98.6 F 01/01/19 09:00 Pulse 99 H 01/01/19 09:00 Resp 20 01/01/19 09:00 BP 131/82 01/01/19 09:00 Pulse Ox - Labs Result Diagrams: 01/01/19 08:55 Labs: Laboratory Results - last 24 hr 01/01/19 08:55 Sodium 141 Potassium 4.0 Chloride 102 Carbon Dioxide 28 Anion Gap 15 BUN 12 Creatinine 0.8 Est GFR ( Amer) > 60 Est GFR (Non-Af Amer) > 60 Random Glucose 121 H Calcium 9.3 Total Bilirubin 0.5 AST 23 ALT 36 Alkaline Phosphatase 98 Total Protein 7.3 Albumin 4.4 Globulin 2.9 Albumin/Globulin Ratio 1.5 Triglycerides 133 D Cholesterol 167 LDL Cholesterol Direct 107 HDL Cholesterol 42 Thyroxine (T4) 9.59 TSH 3rd Generation 0.90 Assessment & Plan (1) Suicide attempt Status: Acute (2) Bipolar 1 disorder Status: Acute (3) Abnormal EKG Status: Acute - Assessment and Plan (Free Text) Plan: available diagnostic data reviewed monitor labs monitor vitals repeat ekg continue treatment as per psych rest of plan as ordered
--- NOTE | 2019-01-01 16:48 | PCM.PSYCH ---
Initial Psychiatric Evaluation - Initial Psychiatric Evaluation Chief Complaint (in patient's own words): was at home became concerned that could not continue to get better, reported took medications saturday prior to admission, presented to [facility] on saturday following (saturday of this week), reportedly informed [facility] staff and was referred to [facility] Patient's Reaction to Hospitalization: signed in voluntarily History of Present Illness and Precipitating Events: see above Current Medications: Active Medications Generic Name Dose Route Start Last Admin Trade Name Freq PRN Reason Stop Dose Admin Acetaminophen 650 mg 12/31/18 17:59 Tylenol 325mg Tab PO Q4 PRN Pain (4-7) Al Hydrox/Mg Hydrox/Simethicone 30 ml 12/31/18 17:59 Maalox Plus 30 Ml PO Q4 PRN Dyspepsia Diphenhydramine HCl 50 mg 12/31/18 17:59 Benadryl IM Q6 PRN Extrapyramidal S/S Unable PO Diphenhydramine HCl 50 mg 12/31/18 18:00 Benadryl PO Q6 PRN EPS/Dystonic Reaction Diphenhydramine HCl 50 mg 12/31/18 18:01 12/31/18 21:12 Benadryl PO 50 mg HS PRN Administration Sleep Gabapentin 300 mg 01/01/19 09:00 01/01/19 12:24 Neurontin PO 300 mg TID SHAUNNA Administration Haloperidol 5 mg 12/31/18 17:59 Haldol PO Q4 PRN Agitation Haloperidol Lactate 5 mg 12/31/18 17:59 Haldol IM Q4 PRN Agitation, Unable to Take PO Lorazepam 2 mg 12/31/18 17:59 Ativan IM Q4 PRN Anxiety/Agitation,Unable PO Lorazepam 1 mg 12/31/18 18:02 Ativan PO Q8 PRN Anxiety Magnesium Hydroxide 30 ml 12/31/18 17:59 Milk Of Magnesia PO HS PRN Constipation Pantoprazole Sodium 40 mg 01/01/19 09:00 01/01/19 08:51 Protonix Ec Tab PO 40 mg DAILY SHAUNNA Administration Past Psychiatric History - Past Psychiatric History Prior Professional Help: inpt, opd, [facility] hospital [facility], [place] History of Abuse: denies History of ETOH/Drug Use: denies Pertinent Medical Hx (Current Medical&Sleep Prob, Allergies): Allergies Allergy/AdvReac Type Severity Reaction Status Date / Time No Known Allergies Allergy Verified 12/29/17 21:04 Gabapentin [Neurontin] 300 mg PO TID 12/29/18 LORazepam [Ativan] 1 mg PO Q8 PRN tab 12/31/18 Pantoprazole [Protonix EC Tab] 40 mg PO DAILY ect 12/31/18 Review of Systems - Psychiatric Additional comments: vacillations in mood, feeling overwhelmed, concerned about fci outcomes, reports was impulsive act expresses remorse Mental Status Examination - Personal Presentation Personal Presentation: Looks stated age - Affect Affect: Constricted - Motor Activity Motor Activity: Psychomotor Retardation - Reliability in Providing Information Reliability in Providing Information: Fair (some what circumstantial) - Formal Thought Process Formal Thought Process: No Impairment - Obsessions/Compulsions Obsessions: No Compulsions: No - Cognitive Functions Orientation: Person, Place, Situation, Time Sensorium: Alert Judgement: Imparied, as evidence by: Other - Risk Risk: Suicidal, Diminished functioning - Strength & Assets Inventory Strength & Assets Inventory: Cooperative (recent overdose impulsive) DSM 5 DX - DSM 5 DSM 5 Diagnosis: schizoaffective disorder bipolar type suicide attempt - Recommended/Plan of Treatment Treatment Recommendations and Plan of Treatment: inpt adm per attending prns per protocol hospitalist vital signs and clinical observation per protocol and per clinical status team to evaluate in am pt was on 4 north (od on seroquel) discharge planning in progress Projected ELOS: 5-7 days Prognosis: guarded Discharge Plan and Discharge Criteria: safety - Smoking Cessation Smoking Cessation Initiated: No Reason for not providing: deferred
[2019-01-02] MEDS: Pantoprazole 40 mg EC Tab PO SCH (09:12)
--- NOTE | 2019-01-02 10:47 | CARD ---
APPROVED REPORT Date of service: 01/02/2019 EKG Measurement Heart [id number] [id number] [id number] <Conclusion> Sinus bradycardia with marked sinus arrhythmia Otherwise normal ECG
--- NOTE | 2019-01-02 16:43 | PCM.PYCHPN ---
Psychiatric Progress Note - Psychiatric Progress Note Patient seen today, length of contact: PT EVALUATED DISCUSSED WITH TEAM CHART REVIEWED Patient Chief Complaint: i STOPPED TAKING MY MEDICINE Problems Identified/Issues Discussed: pt seen with treatment team, presenting with anxious mood and dysphoric affect, reported having negative intrusive thoughts, discussed re starting lithium and seroquel, psychoeducation provided about importance of compliance motivational therapy provided in fererence to cannabis use pt denied active thoughts of self harm, denied perceptual disturbances DSM 5 Symptoms Update: bipolar I disorder cannabis abuse Medication Change: Yes (start lithium) Medical Record Reviewed: Yes Mental Status Examination - Cognitive Function Orientation: Person, Place, Situation, Time Attention: WNL Concentration: Poor Association: WNL Fund of Knowledge: WNL Decription of patient's judgement and insights: partial insight poor judgment - Mood Mood: Anxious - Affect Affect: Constricted - Formal Thought Process Formal Thought Process: No Impairment - Suicidal Ideation Suicidal Ideation: No - Homicidal Ideation Homicidal Ideation: No Goal/Treatment Plan - Goal/Treatment Plan Need for Continued Stay: Remain at risks for inpatient hospitalization, Discharge may exacerbated symptoms Progress Toward Problem(s) and Goals/Treatment Plan: start litium 300mg tid / repeat EKG to follow up on possible qtc prolongation [id number] qhs cbt group and supportive therapy
[2019-01-03] MEDS: Pantoprazole 40 mg EC Tab PO SCH (13:30)
--- NOTE | 2019-01-03 14:53 | PCM.PYCHPN ---
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 pt denies c/o side effect rx. staff report pt lopez been rx adherent on unit, contracted, contracts for safety. Problems Identified/Issues Discussed: alteration in mood alteration in coping alteration in impulse control Medical Problems: per chart Diagnostic Results: per psychiatry, medicine, nursing, social work, recreational therapy DSM 5 Symptoms Update: reported impulsive attempt touching neck with pensil Medication Change: No Medical Record Reviewed: Yes Consults ordered or reviewed: pt being followed by medical team Mental Status Examination - Cognitive Function Orientation: Person, Place, Situation, Time Attention: WNL Concentration: Poor Association: WNL Fund of Knowledge: WNL Decription of patient's judgement and insights: impaired delayed report of attempt of touching neck with pensile , reports was impulsive, not wanting to take life, expresses remorse reviewed did not tell staff when it reportedly occurred later shared with other body service team member - Mood Mood: Anxious - Affect Affect: Constricted - Formal Thought Process Formal Thought Process: No Impairment - Suicidal Ideation Suicidal Ideation: No Plan: self reported attempt at placing pencil to neck, pressing like poking motion, denies desire to take life - Homicidal Ideation Homicidal Ideation: No Goal/Treatment Plan - Goal/Treatment Plan Need for Continued Stay: Remain at risks for inpatient hospitalization, Discharge may exacerbated symptoms Progress Toward Problem(s) and Goals/Treatment Plan: inpt milieu vital signs and clinical observation per protocol and per clinical status adjust meds per clinical status pt contracts for safety, no visible wound necki discharge planning in progress Estimated Date of D/C: 01/09/19 - Smoking Cessation Smoking Cessation Initiated: No Reason for not providing: pt defers
[2019-01-04] MEDS: Pantoprazole 40 mg EC Tab PO SCH (09:12)
--- NOTE | 2019-01-04 15:24 | PCM.PYCHPN ---
Psychiatric Progress Note - Psychiatric Progress Note Patient seen today, length of contact: PT EVALUATED DISCUSSED WITH TEAM CHART REVIEWED Patient Chief Complaint: pt seen unit, visiting family, complains of racing thoughts in am, rested better with seroquel requests information about wanting to try abilify in morning, reports is working on trying not to have intrusive thoughts, has denied desire to harm self or others. staff report pt has been rx adherent with treatment. Problems Identified/Issues Discussed: alteration in mood alteration in coping alteration in impulse control Medical Problems: per chart Diagnostic Results: per psychiatry, medicine, nursing, social work, recreational therapy DSM 5 Symptoms Update: some improvement thoughts continues to report intrusive thoughts concerns about somnolence with seroquel if it were to be taken during day Medication Change: Yes (abilify ) Medical Record Reviewed: Yes Consults ordered or reviewed: pt being followed by medical team Mental Status Examination - Cognitive Function Orientation: Person, Place, Situation, Time Attention: WNL Concentration: Poor Association: WNL Fund of Knowledge: WNL Decription of patient's judgement and insights: impaired - Mood Mood: Anxious - Affect Affect: Constricted - Formal Thought Process Psychotic Thoughts and Behaviors: racing thoughts - Suicidal Ideation Suicidal Ideation: No - Homicidal Ideation Homicidal Ideation: No Goal/Treatment Plan - Goal/Treatment Plan Need for Continued Stay: Remain at risks for inpatient hospitalization, Discharge may exacerbated symptoms Progress Toward Problem(s) and Goals/Treatment Plan: inpt milieu vital signs and clinical observation per protocol and per clinical status adjust meds per clinical status will start abilify 5mg po am (team can reassess in am pt to consider ? long acting antipsychotic ?maintenna)pt contracts for safety, no visible wound necki lithium level in am prior to am dose lithium, glucose scantly elevated [id number] 5, tsh wnl discharge planning in progress Estimated Date of D/C: 01/09/19 - Smoking Cessation Smoking Cessation Initiated: No Reason for not providing: pt defers
[2019-01-05] MEDS: Pantoprazole 40 mg EC Tab PO SCH (09:51)
--- NOTE | 2019-01-05 11:47 | CARD ---
APPROVED REPORT Date of service: 01/02/2019 EKG Measurement Heart [id number] <Conclusion> Normal sinus rhythm with sinus arrhythmia Normal ECG
--- NOTE | 2019-01-05 16:23 | PCM.PYCHPN ---
Psychiatric Progress Note - Psychiatric Progress Note Patient seen today, length of contact: PT EVALUATED DISCUSSED WITH TEAM CHART REVIEWED Patient Chief Complaint: I AM HAVING INRUSIVE VIOLENT THOUGHTS Problems Identified/Issues Discussed: pt presenting with anxious mood and irritable affect, related that to having intrusive thoughts with violent and sexual themes , discussed with pt increasing doose of seroquel and possible lithium after checking on lithium level , encouraged pt to attend groups, psychoeducation provided in reference to importance of compliance with medications , pt denied active thoughts of self harm on the unit , denied perceptual disturbances DSM 5 Symptoms Update: bipolar I disorder Medication Change: Yes (increase seroquel) Medical Record Reviewed: Yes Mental Status Examination - Cognitive Function Orientation: Person, Place, Situation, Time Attention: WNL Concentration: Poor Association: WNL Fund of Knowledge: WNL - Mood Mood: Anxious - Affect Affect: Constricted - Formal Thought Process Formal Thought Process: No Impairment - Suicidal Ideation Suicidal Ideation: No - Homicidal Ideation Homicidal Ideation: No Goal/Treatment Plan - Goal/Treatment Plan Need for Continued Stay: Remain at risks for inpatient hospitalization, Discharge may exacerbated symptoms Progress Toward Problem(s) and Goals/Treatment Plan: lithium 300mg tid / follow up on lithium level increase seroquel 300mg qhs cbt group and supportive therapy Estimated Date of D/C: 01/09/19
[2019-01-06] MEDS: Pantoprazole 40 mg EC Tab PO SCH (09:35)
--- NOTE | 2019-01-06 14:53 | PCM.PYCHPN ---
Psychiatric Progress Note - Psychiatric Progress Note Patient seen today, length of contact: PT EVALUATED DISCUSSED WITH TEAM CHART REVIEWED Patient Chief Complaint: I STILL GET ANXIOUS AND i HAVE THE INTRUSIVE THOUGHTS Problems Identified/Issues Discussed: pt presenting with depressed anxious mood and dysphoric affect , continues to report intrusive thoughts, making him anxious , discussed increasing neurontin and cross tapering seroquel with abilify with the goal of starting abilify maintenna to ensure compliance, pt agreed, pt denied command hallucinations, denied active thoughts of self harm on the unit DSM 5 Symptoms Update: bipolar I disorder cannabis use Medication Change: Yes (start abilify) Medical Record Reviewed: Yes Mental Status Examination - Cognitive Function Orientation: Person, Place, Situation, Time Attention: WNL Concentration: Poor Association: WNL Fund of Knowledge: WNL - Mood Mood: Depressed, Anxious - Affect Affect: Constricted - Speech Speech: Appropriate - Formal Thought Process Formal Thought Process: Delusions, Circumstantial - Suicidal Ideation Suicidal Ideation: No - Homicidal Ideation Homicidal Ideation: No Goal/Treatment Plan - Goal/Treatment Plan Need for Continued Stay: Remain at risks for inpatient hospitalization, Discharge may exacerbated symptoms Progress Toward Problem(s) and Goals/Treatment Plan: lithium 300mg tid / 0.7 lithium level start abilify 5mg daily, with plan to cross taper seroquel with abilify cbt group and supportive therapy Estimated Date of D/C: 01/09/19
[2019-01-07] MEDS: Pantoprazole 40 mg EC Tab PO SCH (09:09)
--- NOTE | 2019-01-07 16:22 | PCM.PYCHPN ---
Psychiatric Progress Note - Psychiatric Progress Note Patient seen today, length of contact: PT EVALUATED DISCUSSED WITH TEAM CHART REVIEWED Patient Chief Complaint: the intrusive thoughts are less with abilify Problems Identified/Issues Discussed: pt evaluated, seen in day room, interacting with other pees and less isolative continues to feel anxious but reported noticeable reduction in the intrusive thoughts , discussed increasing abilify gradually with the goal of starting abilify maintenna to ensure compliance, pt agreed, pt denied command hallucinations, denied active thoughts of self harm on the unit DSM 5 Symptoms Update: bipolar I disorder mixed cannabis use generalized anxiety Medication Change: Yes (increase abilify ) Medical Record Reviewed: Yes Mental Status Examination - Cognitive Function Orientation: Person, Place, Situation, Time Attention: WNL Concentration: Poor Association: WNL Fund of Knowledge: WNL - Mood Mood: Depressed, Anxious - Affect Affect: Constricted - Speech Speech: Appropriate - Formal Thought Process Formal Thought Process: Delusions, Circumstantial - Suicidal Ideation Suicidal Ideation: No - Homicidal Ideation Homicidal Ideation: No Goal/Treatment Plan - Goal/Treatment Plan Need for Continued Stay: Remain at risks for inpatient hospitalization, Discharge may exacerbated symptoms Progress Toward Problem(s) and Goals/Treatment Plan: lithium 300mg tid / 0.7 lithium level increase abilify 15mg daily, decrease seroquel 100 mg qhs cbt group and supportive therapy Estimated Date of D/C: 01/09/19
[2019-01-08] MEDS: Pantoprazole 40 mg EC Tab PO SCH (08:21)
--- NOTE | 2019-01-08 16:17 | PCM.PYCHPN ---
Psychiatric Progress Note - Psychiatric Progress Note Patient seen today, length of contact: PT EVALUATED DISCUSSED WITH TEAM CHART REVIEWED Patient Chief Complaint: I feel better with abilify Problems Identified/Issues Discussed: pt evaluated, with treatment team,, reported feeling less anxious, stated decrease in intrusive thoughts, rated them 6/10, pt seen less isolative, attending groups and interacting with other patients no reported changes in sleep or appetite Medication Change: No (increase abilify ) Medical Record Reviewed: Yes Mental Status Examination - Cognitive Function Orientation: Person, Place, Situation, Time Attention: WNL Concentration: WNL Association: WNL Fund of Knowledge: WNL - Mood Mood: Anxious - Affect Affect: Constricted - Speech Speech: Appropriate - Formal Thought Process Formal Thought Process: Delusions, Circumstantial - Suicidal Ideation Suicidal Ideation: No - Homicidal Ideation Homicidal Ideation: No Goal/Treatment Plan - Goal/Treatment Plan Need for Continued Stay: Remain at risks for inpatient hospitalization, Discharge may exacerbated symptoms Progress Toward Problem(s) and Goals/Treatment Plan: lithium 300mg tid / 0.7 lithium level abilify 15mg daily, decrease seroquel 100 mg qhs / start abilify maintenna cbt group and supportive therapy Estimated Date of D/C: 01/09/19
[2019-01-09] MEDS ORDERED: ARIPIPRAZOLE IM ONE (08:20)
[2019-01-09] MEDS: Pantoprazole 40 mg EC Tab PO SCH (09:04)
--- NOTE | 2019-01-09 15:44 | PCM.PYCHPN ---
Psychiatric Progress Note - Psychiatric Progress Note Patient seen today, length of contact: PT EVALUATED DISCUSSED WITH TEAM CHART REVIEWED Patient Chief Complaint: I feel good Problems Identified/Issues Discussed: pt evaluated, , reported better mood feeling less anxious, stated decrease in intrusive thoughts, , pt seen less isolative, attending groups and interacting with other patients no reported changes in sleep or appetite , no reported side effects wi abilify maintenna Medication Change: Yes (start abilify maintenna ) Medical Record Reviewed: Yes Mental Status Examination - Cognitive Function Orientation: Person, Place, Situation, Time Attention: WNL Concentration: WNL Association: WNL Fund of Knowledge: WNL - Mood Mood: Anxious - Affect Affect: Constricted - Speech Speech: Appropriate - Formal Thought Process Formal Thought Process: Delusions, Circumstantial - Suicidal Ideation Suicidal Ideation: No - Homicidal Ideation Homicidal Ideation: No Goal/Treatment Plan - Goal/Treatment Plan Need for Continued Stay: Remain at risks for inpatient hospitalization, Discharge may exacerbated symptoms Progress Toward Problem(s) and Goals/Treatment Plan: lithium 300mg tid / 0.7 lithium level abilify 15mg daily, decrease seroquel 100 mg qhs / start abilify maintenna 1st dose 01/09/19 cbt group and supportive therapy Estimated Date of D/C: 01/09/19
[2019-01-10] MEDS: Pantoprazole 40 mg EC Tab PO SCH (09:01)
[2019-01-10 09:06] VITALS: BP 128/84; PULSE 96; RESP 20; TEMP 99
--- NOTE | 2019-01-10 10:52 | PCM.PYCHDC ---
Mental Status Examination - Mental Status Examination Orientation: Person, Place, Situation Memory: Intact Mood: Neutral Affect: Broad Speech: Appropriate Attention: WNL Concentration: WNL Association: WNL Fund of Knowledge: WNL Formal Thought Process: Circumstantial Description of patient's judgement and insight: partial insight poor judgment Psychotic Thoughts and Behaviors: pt denied psychotic symptoms on discharge, non elicited Suicidal Ideation: No Current Homicidal Ideation?: No Discharge Summary - Discharge Note Reason for Hospitalization: as per admission note 28 yo male w/ h/o bipolar disorder, presents s/p suicide attempt by attempting to take 4 (100 mg) Seroquel tablets. He reports worsening depression, anxiety, intrusive thoughts to commit suicide and sleep disturbances. He denies acute AH/VH/paranoia/delusions. Consultations:: List each consultation separately and include: 1. Reason for request. 2. Findings. 3. Follow-up Summary of Hospital Course include:: 1. Description of specific treatment plan utilized for patients during their course of treatmen. 2. Summarize the time- course for resolution of acute symptoms and/or regressed behaviors. 3. Describe issues identified and worked on during hospitalization. 4. Describe medication utilized. 5. Describe medical problems identified and treated. 6. Reassessment of suicide risk Summary of Hospital Course: pt on admission was started on lithium, it was increased to 300mg tid / li level 0.7 pt was placed on neurontin for anxiety seroquel was cross tapered with abilify with good tolerance to abilify and pt was started on abilify maintenna depot injection to ensure compliance 1st dose was on 01/09/19, next dose expected to be on 02/08/19 motivational therapy provided in reference to cannabis use and psychoeducation provided about importance of compliance pt was compliant with treatment attended groups, no reported side effects of medications pt presented with brighter affect, reported clearing off of the intrusive thoughts on discharge mental status was stable pt denied perceptual disturbances, denied any current suicidal or homicidal ideation - Diagnosis (1) Bipolar 1 disorder, depressed Current Visit: No Status: Acute - Final Diagnosis (DSM 5) Condition upon Discharge: GOOD DSM 5: bipolar I disorder cannabis abuse Disposition: HOME/ ROUTINE Follow-up Treatment Plan: [facility] partial hospital Prescriptions/Medication Reconciliation: ARIPiprazole [Abilify] 15 mg PO DAILY 30 Days #90 tab Benztropine [Cogentin] 1 mg PO DAILY 30 Days #30 tab Gabapentin [Neurontin] 400 mg PO TID 30 Days #90 cap Valle Carbonate [Valle Carbonate 300MG] 300 mg PO TID 30 Days #90 cap QUEtiapine [Seroquel] 100 mg PO HS 30 Days #30 tab - Antipsychotic Medications Pt discharged on 2 or more routine antipsychotic medications: Yes - Justification for 2 or more meds Failed 3 or more trials of Monotherapy: List medications: augmentation
== END 2019-01-10 13:30 | disposition home or self-care (01) | DRG 430 ==
LOC: H.PSYCH 17:10
PROVIDERS: ADMIT Psychiatry & Neurology Psychiatry; ATTEND Psychiatry & Neurology Psychiatry
PROC: GZHZZZZ Group Psychotherapy (ICD-10-PCS; principal; 2018-12-31)
PROC: GZ58ZZZ Individual Psychotherapy, Cognitive-Behavioral (ICD-10-PCS; 2018-12-31)
DX: F31.30 Bipolar disorder, current episode depressed, mild or moderate severity, unspecified (principal); F25.0 Schizoaffective disorder, bipolar type; F12.10 Cannabis abuse, uncomplicated; F41.1 Generalized anxiety disorder; Z91.5 Personal history of self-harm; Z91.410 Personal history of adult physical and sexual abuse; Z91.411 Personal history of adult psychological abuse; R94.31 Abnormal electrocardiogram [ECG] [EKG]; F17.210 Nicotine dependence, cigarettes, uncomplicated; Z79.899 Other long term (current) drug therapy